=== PATIENT | female | born 1970 | race Caucasian/White ===

== ENCOUNTER 2016-09-20 07:36 | Inpatient (IN) ==
[2016-09-20 08:16] LABS: BASOPHILS % (AUTO) 0.3 % (0.0-3.0); EOSINOPHILS # (AUTO) 0.3 K/ul (0.0-0.7); EOSINOPHILS % (AUTO) 2.6 % (0.0-7.0); HEMATOCRIT 37.2 % (37.0-47.0); HEMOGLOBIN 12.3 g/dl (12.0-16.0); IMMATURE GRANULOCYTE % (AUTO) 0.2 % (0.0-5.0); LYMPHOCYTES # (AUTO) 3.6 K/uL (0.60-3.4); LYMPHOCYTES % (AUTO) 35.9 (10.0-50.0); MEAN CORPUSCULAR HEMOGLOBIN 28.7 pg (27.0-31.0); MEAN CORPUSCULAR HGB CONC 33.1 (31.8-35.4); MEAN CORPUSCULAR VOLUME 86.9 fl (81.0-99.0); MONOCYTES % (AUTO) 10.2 (0-10); NEUTROPHILS # (AUTO) 5.1 K/ul (2.0-6.9); NEUTROPHILS % (AUTO) 50.8; PLATELET COUNT 249 10^3/uL (140-440); RED BLOOD COUNT 4.28 10^6/ul (4.20-5.40); WHITE BLOOD COUNT 9.93 K/ul (4.6-10.2)
--- NOTE | 2016-09-20 08:29 | ED.PDOC ---
General ED Provider: Dr. VIANEY BALLARD Chief Complaint: Shoulder Pain/Injury Stated Complaint: left shoulder pain neck pain, Time Seen by Physician: 07:40 (seen with brooklyn fortunato ) Mode of Arrival: Walk-In Information Source: Patient Exam Limitations: No limitations Primary Care Provider: MADELIN BIANCHI Nursing and Triage Documentation Reviewed and Agree: Yes (NEGATIVE TRAUMA NO INJURY( [place] GIORDANO PRESENT AT ALL TIMES DURING EXAM ) Miscellaneous Complaint Exam - Complex/Multi-System Complaint/Exam Onset/Duration: 1 DAY 46 YUDITH FEMALE WITH SIGNIFICANT HISTORY OF CAD(4MI PLUS5 STENTS) Symptoms Are: Still present Episodes Lasting: Days (ONE DAY PAIN ABOVE DISTRIBUTION NEGATIVE TRAUMA) Initial Severity: Moderate Current Severity: Mild Location of Pain: NECK, LEFT SHOULDER Pain Radiates to: SEE ABOVE Character: CHARACTER Alleviating: NONE Associated Signs and Symptoms: Denies: Decreased responsiveness, Confusion, Agitation, Dizziness, Weakness, Syncope, Headache, Short of air, Cough, Wheezing , Hemoptysis, Chest pain, Palpitations, Edema, Nausea, Vomiting, Diarrhea, Abdominal pain, Back pain, Dysuria, Hematemesis, Melena, Decreased oral intake, Fever, Diaphoresis, Immunocompromised, Anticoagulation Therapy, Recent medication changes, Indwelling medical assistant cardiology, Prior MRSA, Prior VRE, Recent trauma, Remote trauma Recent Echo/LV Function: No Respiratory Distress: None JVD Present: No Tachypnea Present: No Stridor Present: No Abdominal Findings: Present: Normal findings Glascow Coma Scale (see protocol): 15 Meningeal Signs Positive: No Focal Weakness: Present: None Focal Sensory Loss: Present: None Gait: Unable Gag Reflex Present: Yes Differential Diagnosis: Cardiac Ischemia, Metabolic Abnormality Quality Indicators for Cardiac Chest Pain: EKG in 10min. Quality Indicators for AMI: EKG in 10min. Quality Indicator For Non-Traumatic Chest Pain/Syncope: EKG Performed Review of Systems - Review Of Systems Constitutional: Reports: No symptoms Eyes: Reports: No symptoms Ears, Nose, Mouth, Throat: Reports: No symptoms Respiratory: Reports: No symptoms Cardiac: Reports: No symptoms GI: Reports: No symptoms : Reports: No symptoms Musculoskeletal: Reports: Joint pain (SHOULDER, NECK PAIN) Skin: Reports: No symptoms Neurological: Reports: No symptoms Endocrine: Reports: No symptoms Hematologic/Lymphatic: Reports: No symptoms All Other Systems: Reviewed and Negative Past Medical History - Past Medical History Previously Healthy: Yes Endocrine: Reports: None Cardiovascular: Reports: CAD, DE, Hypertension Respiratory: Reports: None Hematological: Reports: None Gastrointestinal: Reports: None Genitourinary: Reports: Kidney stones Neuro/Psych: Reports: Migraine, Anxiety, Depression Musculoskeletal: Reports: None Cancer: Reports: None Last Menstrual Period: months ago-- - Surgical History General Surgical History: Reports: Tubal ligation, Cholecystectomy - Family History Family History: Reports: Unknown - Social History Smoking Status: Current every day smoker, Light tobacco smoker Hx Substance Use: No Alcohol Screening: None Physical Exam - Physical Exam Appearance: Well-appearing, No pain distress, Well-nourished Eyes: REY, EOMI, Conjunctiva clear ENT: Ears normal, Nose normal, Oropharynx normal Respiratory: Airway patent, Breath sounds clear, Breath sounds equal, Respirations nonlabored Cardiovascular: RRR, Pulses normal, No rub, No murmur GI/: Soft, Nontender, No masses, Bowel sounds normal, No Organomegaly Musculoskeletal: Normal strength, ROM intact, No edema, No calf tenderness Skin: Warm, Dry, Normal color Neurological: Sensation intact, Motor intact, Reflexes intact, Cranial nerves intact, Alert, Oriented Psychiatric: Affect appropriate, Mood appropriate Re-Evaluation - Re-Evaluation Time of Re-Evaluation: 08:20 (SEEN WITH MAY PT STATES THE PAIN IS NOT HEART RELATED WOULD LIKE TO LEAVE DUE TO MD DECLINING PAIN MEDS LATER AGREED TO SATY MAY PRESENT AT ALL TIMES ) Status: Unchanged Vital Signs Stable: Yes Appearance: NAD Lungs: Clear Skin: Warm and Dry Neuro: Alert and Oriented X3 CV: RRR - Re-Evaluation Time of Re-Evaluation: 10:04 (recheckec pt with may again at 11:26 am no pain pt is refusing transfer MAY at bedside contacted hospitalist pt admitted) Status: Improved Vital Signs Stable: Yes Appearance: NAD Skin: Warm and Dry Neuro: Alert and Oriented X3 CV: RRR Physician Notification - Case Discussed Physician Notified: hospitalist Time of Notification: 11:26 (admitt) Admit To: Inpatient Critical Care Note - Critical Care Note Total Time (mins): 0 Course - Course Hematology/Chemistry: 09/20/16 08:10 09/20/16 08:10 Orders, Labs, Meds: Lab Review 09/20/16 08:10 WBC 9.93 RBC 4.28 Hgb 12.3 Hct 37.2 MCV 86.9 MCH 28.7 MCHC 33.1 RDW Coeff of Kristopher 13.5 Plt Count 249 Immature Gran % (Auto) 0.2 Neut % (Auto) 50.8 Lymph % (Auto) 35.9 Braxton % (Auto) 10.2 H Eos % (Auto) 2.6 Baso % (Auto) 0.3 Immature Gran # (Auto) 0.0 Neut # 5.1 Lymph # 3.6 H Braxton # 1.0 Eos # 0.3 Baso # 0.0 D-Dimer (Manual) 649.04 Sodium 139 Potassium 4.0 Chloride 106 Carbon Dioxide 24 Anion Gap 13.0 BUN 15 Creatinine 0.72 Estimated GFR (MDRD) 87.00 BUN/Creatinine Ratio 20.83 Glucose 139 H Calcium 8.5 Total Bilirubin 0.11 AST 15 ALT 15 Alkaline Phosphatase 98 Total Creatine Kinase 121 CK-MB (CK-2) 1.6 CK-MB (CK-2) % 1.12414 Troponin I < 0.0100 Total Protein 6.9 Albumin 3.5 Globulin 3.4 Albumin/Globulin Ratio 1.03 Orders Category Date Time Status EKG-(ED ONLY) Stat CARDIO 09/20/16 08:06 Completed EKG-(ED ONLY) Stat CARDIO 09/20/16 09:00 Completed NPO REMINDER: IMAGING ONCE CARE 09/20/16 10:03 Completed ED IV/MEDIPORT/POWERPORT .ONCE EMERGENCY 09/20/16 08:06 Active CBC W/ AUTO DIFF Stat LAB 09/20/16 08:10 Completed COMPREHENSIVE METABOLIC PANEL Stat LAB 09/20/16 08:10 Completed CREATINE KINASE Stat LAB 09/20/16 08:10 Completed D-DIMER Stat LAB 09/20/16 08:10 Completed TROPONIN I Stat LAB 09/20/16 08:10 Completed 0.9 % Sodium Chloride [Saline Flush] MEDS 09/20/16 08:05 Active [address] sy[address] IVF [address] CERVICAL SPINE W/O CONTRAST Stat RADS 09/20/16 08:[address] CHEST PE PROTOCOL Stat RADS 09/20/16 10:03 Completed Medications Generic Name Dose Route Start Last Admin Trade Name Freq PRN Reason Stop Dose Admin Sodium Chloride 1 syr 09/20/16 08:05 09/20/16 08:18 Saline Flush IVF 1 syr PRN PRN Administration To flush IV Vital Signs: Temp Pulse Resp BP Pulse Ox 09/20/16 07:36 98.1 F 86 20 131/86 96 Departure - Departure Time of Disposition: 11:25 Disposition: ADMITTED INPATIENT Discharge Problem: Shoulder pain, Neck pain Instructions: Acute Neck Pain (ED) Condition: Good Pt referred to PMD for follow-up: Yes Allergies/Adverse Reactions: Allergies ketorolac tromethamine [From Toradol] Adverse Reaction (Verified 09/20/16 07:44) Home Medications: Ambulatory Orders Gabapentin [Neurontin] 300 mg PO BID 01/17/13 Ascorbic Acid [Vitamin C] 1,000 mg PO DAILY 01/08/15 Aspirin/Calcium Carbonate/Mag [Aspirin Buffered 325 mg Tab] 325 mg PO DAILY 04/23 Atorvastatin Calcium 20 mg PO DAILY 01/08/15 Carvedilol [Coreg] 6.25 mg PO BIDWM 01/08/15 Cholecalciferol (Vitamin D3) [Vitamin D] 2,000 unit PO DAILY 01/08/15 Clopidogrel Bisulfate [Plavix] 75 mg PO DAILY 01/08/15 Flaxseed Oil [Flax Seed Oil] 1,000 mg PO BID 01/08/15 Furosemide [Lasix Tab] 40 mg PO QDAC 01/08/15 Levothyroxine Sodium [Synthroid] 25 mcg PO QDAC 01/08/15 [place]-3 Fatty Acids/Fish Oil [Fish Oil 1,000 mg Capsule] 1 each PO BID 01/08/15 Duloxetine HCl [Cymbalta] 60 mg PO DAILY 03/21/15 Spironolactone 25 mg PO DAILY 03/21/15 Hydrocodone/Acetaminophen [Hydrocodon-Acetaminophn 10-325] 1 each PO QID PRN
[2016-09-20 08:52] LABS: ALANINE AMINOTRANSFERASE 15 U/L (12-78); ALBUMIN 3.5 g/dL (3.4-5.0); ALBUMIN/GLOBULIN RATIO 1.03; ALKALINE PHOSPHATASE 98 U/L (42-98); ASPARTATE AMINO TRANSFERASE 15 U/L (15-37); BILIRUBIN,TOTAL 0.11 mg/dL (0.00-1.20); BLOOD UREA NITROGEN 15 mg/dL (7-18); BUN/CREATININE RATIO 20.83; CALCIUM 8.5 mg/dL (8.2-10.2); CARBON DIOXIDE 24 mmol/L (21-32); CHLORIDE 106 mmol/L (98-107); CREATINE KINASE 121 U/L; CREATININE 0.72 mg/dL (0.60-1.30); GLUCOSE 139 mg/dL (70-110); SODIUM 139 mmol/L (136-145); TOTAL PROTEIN 6.9 g/dL (6.4-8.2)
[2016-09-20 08:58] LABS: CREATINE KINASE MB 1.6 ng/ml (0.0-3.6)
--- NOTE | 2016-09-20 09:02 | CT ---
EXAM: CT scan of the cervical spine without contrast HISTORY: Pain TECHNIQUE: Imaging of the cervical spine was performed without contrast. Sagittal and coronal jes nstructions and axial images were provided for interpretation. FINDINGS: There is straightening of the cervical spine. The occipital condyles, C1 ring appear int act. The odontoid process and C2 vertebral body appear normal. There is a normal alignment of the f acet joints. The spinous processes are intact. There is moderate loss of disc height and cervical s pondylosis seen at C4-C5 and C5-C6. Segmental analysis: C2-C3: The central canal and neural foramina appear patent. C3-C4: The central canal appears patent. There is uncinate and facet joint degeneration resulting in mild to moderate left and mild right foraminal stenosis. There is mild narrowing of the central canal. C4-C5: There is cervical spondylosis resulting in mild stenosis of the central canal. The thecal s ac measures approximately 8.6 mm AP. There is uncovertebral joint hypertrophy resulting in moderate bilateral foraminal stenosis, left greater than right. C5-C6: There is cervical spondylosis resulting in mild central canal stenosis. The thecal sac abel ures 8 mm AP. There is uncinate and mild facet joint arthropathy resulting in mild to moderate bila teral foraminal stenosis. C6-C7: The central canal appears patent. There is uncinate and facet joint degeneration resulting in mild left foraminal stenosis. The right neural foramen appears adequately patent. C7-T1: The central canal and neural foramina appear patent. IMPRESSION: No acute fractures are seen within the cervical spine. There is mild central canal stenosis seen at the C4-C5 and C5-C6 disc spaces. There is multilevel foraminal stenosis as described above secondary to uncovertebral joint and facet joint degeneration. The findings are most severe at the C4-C5 disc space.
--- NOTE | 2016-09-20 10:45 | CT ---
EXAM: CT angiogram of the chest with contrast HISTORY: Elevated D-dimer TECHNIQUE: Imaging of the chest was performed following the intravenous administration of contrast. 3 mm thin axial images and coronal and sagittal reconstructions and rotated 3-D reconstructions we re provided for interpretation. Comparison none. FINDINGS: No definite filling defects are identified within the branches of the pulmonary arteries. The central pulmonary arteries are normal. The heart is normal size. There is a normal appearance of the thoracic aorta. No mediastinal masses are seen. No lytic or blastic lesions are seen within the osseous structures. IMPRESSION: There is no acute pulmonary embolism.
[2016-09-20] MEDS ORDERED: ASPIRIN CHEWABLE PO STA (11:28)
[2016-09-20] MEDS ORDERED: NORCO 10-325 PO PRN (11:29)
[2016-09-20] MEDS ORDERED: SODIUM CHLORIDE 1,000 ML IV SCH ×2 (12:00→15:52)
[2016-09-20 12:46] VITALS: BMI 38.0
[2016-09-20] MEDS ORDERED: DILAUDID 1 MG/ML SYRINGE IVP STA (16:04)
[2016-09-20] MEDS: COREG PO SCH (17:57)
[2016-09-20 18:23] LABS: CREATINE KINASE 88 U/L
[2016-09-20] MEDS ORDERED: FLEXERIL PO STA (18:50)
[2016-09-20] MEDS: NORCO 10-325 PO SCH ×2 (18:55→21:07)
[2016-09-20] MEDS: ALDACTONE PO SCH (20:48)
[2016-09-20] MEDS: NEURONTIN PO SCH (20:48)
[2016-09-21 01:36] LABS: BASOPHILS % (AUTO) 0.4 % (0.0-3.0); EOSINOPHILS # (AUTO) 0.3 K/ul (0.0-0.7); EOSINOPHILS % (AUTO) 3.2 % (0.0-7.0); HEMATOCRIT 36.6 % (37.0-47.0); HEMOGLOBIN 12.1 g/dl (12.0-16.0); IMMATURE GRANULOCYTE % (AUTO) 0.2 % (0.0-5.0); LYMPHOCYTES # (AUTO) 3.5 K/uL (0.60-3.4); LYMPHOCYTES % (AUTO) 38.1 (10.0-50.0); MEAN CORPUSCULAR HEMOGLOBIN 28.9 pg (27.0-31.0); MEAN CORPUSCULAR HGB CONC 33.1 (31.8-35.4); MEAN CORPUSCULAR VOLUME 87.6 fl (81.0-99.0); MONOCYTES # (AUTO) 0.7 K/uL (0.4-2.0); MONOCYTES % (AUTO) 7.6 (0-10); NEUTROPHILS # (AUTO) 4.6 K/ul (2.0-6.9); NEUTROPHILS % (AUTO) 50.5; PLATELET COUNT 256 10^3/uL (140-440); RED BLOOD COUNT 4.18 10^6/ul (4.20-5.40)
[2016-09-21 01:52] LABS: CHOL/HDL RATIO 6.6 (4.5-5.5)
[2016-09-21 01:54] LABS: ALBUMIN 3.1 g/dL (3.4-5.0); ALBUMIN/GLOBULIN RATIO 0.94; ANION GAP 13.1; BILIRUBIN,TOTAL 0.17 mg/dL (0.00-1.20); BUN/CREATININE RATIO 14.47; CALCIUM 8.2 mg/dL (8.2-10.2); CREATININE 0.76 mg/dL (0.60-1.30); POTASSIUM 4.1 mmol/L (3.5-5.10); TOTAL PROTEIN 6.4 g/dL (6.4-8.2)
[2016-09-21 02:00] LABS: CREATINE KINASE 76 U/L
[2016-09-21] MEDS ORDERED: SYNTHROID PO SCH (06:30)
[2016-09-21] MEDS ORDERED: LASIX TAB PO SCH (06:30)
[2016-09-21] MEDS ORDERED: ASPIRIN EC PO SCH (08:00)
[2016-09-21] MEDS ORDERED: NON-FORMULARY MEDICATION (Duloxetine Hcl [Cymbalta] 60 MG) PO SCH ×22 (09:00)
[2016-09-21] MEDS ORDERED: LIPITOR PO SCH (09:00)
[2016-09-21] MEDS ORDERED: ALDACTONE PO SCH (09:00)
[2016-09-21] MEDS ORDERED: PLAVIX PO SCH (09:00)
[2016-09-21] MEDS ORDERED: CYMBALTA PO SCH (09:00)
[2016-09-21] MEDS: COREG PO SCH (09:16)
[2016-09-21] MEDS: ALDACTONE PO SCH (09:16)
[2016-09-21] MEDS: NORCO 10-325 PO SCH (09:17)
[2016-09-21] MEDS: NEURONTIN PO SCH (09:17)
[2016-09-21 11:48] VITALS: BP 109/81; TEMP 97.8
--- NOTE | 2016-09-23 13:02 | CONS ---
DATE OF CONSULTATION: 09/21/16 - CONSULTATION FOLLOWUP HISTORY OF PRESENT ILLNESS: 46-year-old white female hospitalized with neck pain, posterior side with localized tenderness. The patient's neck pain has practically subsided. There is no chest pain. REVIEW OF SYSTEMS: CONSTITUTIONAL: No night sweats. No fatigue, malaise, lethargy. No fever or chills. HEENT: Eyes: No visual changes. No eye pain. No eye discharge. ENT: No runny nose. No epistaxis. No sinus pain. No sore throat. No odynophagia. No ear pain. No congestion. RESPIRATORY: No cough, no congestion. No hemoptysis. CARDIOVASCULAR: No angina symptoms. No CHF symptoms. No atypical chest pain for CAD. No palpitations. No shortness of breath. GASTROINTESTINAL: No abdominal pain. No nausea or vomiting. No diarrhea or constipation. No hematemesis. No hematochezia. GENITOURINARY: No urgency. No frequency. No dysuria. No hematuria. No obstructive symptoms. No discharge. No pain. No significant abnormal bleeding. MUSCULOSKELETAL: No musculoskeletal pain. No joint swelling. NEUROLOGICAL: No headache. No neck pain. No syncope. No seizures. No dizziness. PSYCHIATRIC: Not anxious. No depression. No suicidal thoughts. No homicidal thoughts. SKIN: No rash. No lesions. No wounds. ENDOCRINE: No unexplained weight loss. No weight gain. HEMATOLOGIC/LYMPHATIC: No anemia. No purpura. No petechiae. No prolonged or excessive bleeding. No palpable lymph nodes. PHYSICAL EXAMINATION: GENERAL: The patient is oriented to time place and person. VITAL SIGNS: Temperature 97, pulse 73, respiratory rate 18, BP 140/88, pulse ox 98%. HEENT: Head normocephalic, atraumatic. Eyes: Extraocular muscles are intact. Pupils are equal, round and reactive to light and accommodation. Ears: No lesions. Nose appeared normal. Throat: No exudate or erythema. NECK: Supple. No JVD, no carotid bruit. No lymphadenopathy or thyromegaly. LUNGS: Decreased breath sounds but clear to auscultation. Percussion note normal. Chest symmetrical. HEART: S1, S2, no S3. No murmurs. No cyanosis or clubbing. No ascites. Pulses: Dorsalis pedis and posterior tibial pulses +1 to +2 both sides. ABDOMEN: Soft. Nontender. Bowel sounds active. No CVA tenderness. No mass felt. EXTREMITIES: No edema. Full range of motion of all extremities, equal. NEUROLOGIC: No focal deficit. Cranial nerves II through XII are grossly intact. No headache, no double vision or headache. SKIN: Not dry. Intact. Turgor - normal. LYMPHATIC: No palpable lymph nodes/no lymphedema. MUSCULOSKELETAL: Normal joints with no swelling. Muscle tone is normal. LABS: Hemoglobin 12,1, hematocrit 36, WBC 9,100, normal differential. Creatinine 0.7 , BUN 11, potassium 4.1, glucose 131, CK-MB negative. T4-TSH negative. ASSESSMENT: 1. NECK PAIN POSTERIORLY WITH RADICULOPATHY TYPE OF PAIN ON MOVEMENT, LOCALIZED PAIN 2. CORONARY ARTERY DISEASE WITH STENTS 3. OBESITY 4. DYSLIPIDEMIA 5. HYPERTENSION 6. FAMILY HISTORY OF HEART DISEASE 7. SMOKING RECOMMENDATION: 1. Strongly advised to quit smoking. 2. Counseling for smoking done. 3. The patient declined echocardiogram and declined any stress tests. The case was discussed on the phone with the attending physician. The patient's pain is definitely noncardiac. The patient's cardiac markers are negative. EKG sinus rhythm with no acute changes. Telemetry sinus rhythm with no ST-T wave change. CONDITION: Stable. The patient is intelligent and understands the consequences of not having cardiac workup done and advised to strongly followup with Dr. Hannah, her store coordinator. CELIO
--- NOTE | 2016-09-24 11:04 | CONS ---
DATE OF CONSULTATION: 09/20/16 REASON FOR CONSULTATION: Coronary artery disease with history of stents with neck pain. HISTORY OF PRESENT ILLNESS: The patient is a 46 year old female came to the emergency room because of having neck pain posteriorly going to the left shoulder with localized tenderness. The patient says that she does not have pain that she usually has with her coronary artery disease. The patient had lab tests done with positive D -dimer so the ER attending along with doctor supervisor pumping station decided to admit the patient for further work up. REVIEW OF SYSTEMS: CONSTITUTIONAL: No night sweats. No fatigue, malaise, lethargy. No fever or chills. HEENT: Eyes: No visual changes. No eye pain. No eye discharge. ENT: No runny nose. No epistaxis. No sinus pain. No sore throat. No odynophagia. No ear pain. No congestion. RESPIRATORY: No cough, no congestion. No hemoptysis. CARDIOVASCULAR: No angina symptoms. No CHF symptoms. No atypical chest pain for CAD. No palpitations. No shortness of breath. GASTROINTESTINAL: No abdominal pain. No nausea or vomiting. No diarrhea or constipation. No hematemesis. No hematochezia. GENITOURINARY: No urgency. No frequency. No dysuria. No hematuria. No obstructive symptoms. No discharge. No pain. No significant abnormal bleeding. MUSCULOSKELETAL: No musculoskeletal pain. No joint swelling. Neck pain in the posterior aspect of the neck, sharp, localized and going to the left shoulder. NEUROLOGICAL: No headache. No neck pain. No syncope. No seizures. No dizziness. PSYCHIATRIC: Not anxious. No depression. No suicidal thoughts. No homicidal thoughts. SKIN: No rash. No lesions. No wounds. ENDOCRINE: No unexplained weight loss. No weight gain. HEMATOLOGIC/LYMPHATIC: No anemia. No purpura. No petechiae. No prolonged or excessive bleeding. No palpable lymph nodes. MEDICATIONS: Gabapentin 300mg twice a day Aspirin one a day Atorvastatin 20mg PO daily Carvedilol 6.25mg twice a day Plavix 75mg PO daily Lasix 40mg PO daily Synthroid 25mcg PO daily Cymbalta 60mg PO daily Aldactone 25mg twice a day Hydrocodone 10-325mg four times a day PRN ALLERGIES: Toradol PAST MEDICAL HISTORY/PAST SURGICAL HISTORY: No significant surgical history History of dyslipidemia Coronary artery disease Strong family history of heart disease Neuropathy Severe Disc disease of the spine SOCIAL/PERSONAL/FAMILY HISTORY: The patient lives with her son. She is Smoker, no alcohol abuse and no drug abuse. 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. She does all activity of daily living, independent and intelligent. PHYSICAL EXAMINATION: GENERAL: The patient is oriented to time, place and person VITAL SIGNS: Temperature 97.1, pulse 88, respiratory rate 20, blood pressure 96343 and pulse ox 96%. HEENT: Head normocephalic, atraumatic. Eyes: Extraocular muscles are intact. Pupils are equal, round and reactive to light and accommodation. Ears: No lesions. Nose appeared normal. Throat: No exudate or erythema. NECK: Supple. No JVD, no carotid bruit. No lymphadenopathy or thyromegaly. Tenderness in the posterior aspect of cervical area on the left side. LUNGS: Clear to auscultation. Percussion note normal. Chest symmetrical. HEART: S1, S2, no S3. No murmurs. No cyanosis or clubbing. No ascites. Pulses: Dorsalis pedis and posterior tibial pulses +1 to +2 both sides. ABDOMEN: Soft. Nontender. Bowel sounds active. No CVA tenderness. No mass felt. EXTREMITIES: No edema. Full range of motion of all extremities, equal. NEUROLOGIC: No focal deficit. Cranial nerves II through XII are grossly intact. No headache, no double vision or headache. SKIN: Not dry. Intact. Turgor - normal. LYMPHATIC: No palpable lymph nodes/no lymphedema. MUSCULOSKELETAL: Normal joints with no swelling. Muscle tone is normal. LABS: hgb 12.3, hct 37, WBC 9,900 normal differential, creatinine 0.7, BUN 15, potassium 4, glucose 139, D-dimer 649, troponin and CK-MB negative. EKG sinus rhythm no acute changes. ASSESSMENT: 1. Neck pain, left shoulder pain atypical for coronary insufficiency likely musculoskeletal with cervical radiculopathy with history of DJD of the spine. 2. Coronary artery disease with history of CT, 2010 with stent placement and after that the patient had four stent placement, last one was a year ago 2015 in [place]. 3. Dyslipidemia 4. Hypertension 5. Obesity with BMI of 38 6. Smoking 7. Strong family history of heart disease 8. 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 Agreed with present management 2. Continuation of all the medications 3. Will do 2DM-Mode echo 4. Agreed with serial EKG's, cardiac markers and telemetry 5. The patient is advised to be up and about 6. The patient is practically asymptomatic for coronary insufficiency or CHF. CONDITION: Stable. MTDD
--- NOTE | 2016-09-24 11:37 | PN ---
CODING FOR BILLING FOR MY OFFICE AND FOR Concepcion Murillo seen on consultation 09/20/16 LEVEL 5 09/21/16 INTERMEDIATE MTDD
--- NOTE | 2016-09-25 09:32 | HP ---
CHIEF COMPLAINT: Pain left side of the neck and tingling of the left fingers. SOURCE OF HISTORY: Patient, reliability good. HISTORY OF PRESENT ILLNESS: This is a 46 year old female who presented to the emergency room at [facility] [place] after work. 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 The patient had been experiencing pain in the left side of the neck and was worsening. 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 Movement causes severe pain with tingling of the fingers. There was no diaphoresis, no nausea and no weakness. The patient denied any chest pain. She was sent to the emergency room and was seen by the ER physician and had the following work-up. CBC unremarkable. D-Dimer 649.04, followed by chest CT angiogram-negative for pulmonary emboli and no acute cardiopulmonary process. CMP slightly elevated sugar at 139. Cardiac enzymes normal and the rest of the chemistries were normal. The patient had CT of the cervical spine showing some narrowing of the foramen more on the left side. The patient claimed that the she has different from the pain that she had at the time of her myocardial infarction, which she had two. The ER MD called me and recommended admission. I did ask him if the patient has a lens molder and he did not answer me that. I felt that if this patient had chest pain or bonafide pain that she should probably see the lens molder, since she had previous cardiac catheterizations times three, that she probably would need another cardiac catheterization instead of a work-up. He told me that the patient does not want to go anyplace, except here. He asked Dr. Anne if he was available for consult when this patient is admitted and Dr. Anne told him yes. The patient was then admitted. PAST PERSONAL HISTORY: The patient is hypertensive, myocardial infarction 2010 and did subsequently have a cardiac catheterization and stents were deployed February 11, 2011 and another catheterization February 16/2011 and two more stents were deployed. She claimed that she had a total of five stents. The third catheterization was done in 2012 where another stent was deployed making it a total of 15. The patient also had another myocardial infarction 2014. She also was diagnosed with hypothyroidism, depression, anxiety, migraine , elevated BMI. The patient had previous and left salpingo- oophorectomy. FAMILY HISTORY: Father had repeated myocardial infarction and some members of the family had leukemia. 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 She smokes about a half a pack of cigarettes a day. The patient was smoking two packs or more prior to her first myocardial infarction. She denies any alcohol use or substance abuse. MEDICATIONS: Prior to this admission consisted of: Neurontin 300 mg twice a day [place] 3 1,000 mg a twice a day Vitamin D3 2,000 IU daily Aspirin 325 mg daily Vitamin C 1,000 mg daily Lasix 40 mg daily Carvedilol 6.25 mg twice a day Lipitor 20 mg daily Levothyroxine 25 mcg daily Plavix 75 mg daily Flaxseed oil 1,000 mg twice a day Cymbalta 60 mg daily Aldactone 25 mg daily Hydrocodone/APAP 10/325 mg one tablet four times a day as needed for the back pain ALLERGIES: Toradol and had a significant amount of rash, but no swelling of the lips or tongue and no shortness of breath. REVIEW OF SYSTEMS: CONSTITUTIONAL: The patient had no fever, no chills and no fatigue. REGULATORY ADMINISTRATOR: The patient had history of migraine headaches, but does not have one now. She has tingling of the fingers of the left hand. No history of syncope or seizure problems. Denies any ataxia. VISUAL: Denies any blurred vision, double vision or loss of vision. AUDITORY: Hearing is good. Denies any tinnitus, pain or drainage. RESPIRATORY: The patient has no significant cough and history of hemoptysis. The patient is a smoker. CARDIOVASCULAR: No anterior chest pain or any oppression type sensation. No shortness of breath with the usual exertion at work. GASTROINTESTINAL: No nausea, anorexia or vomiting or abdominal pain. GENITOURINARY: Denies any dysuria or frequency. MUSCULOSKELETAL: The patient has pain in the neck, left side, as well as the left suprascapular area and tingling of the fingers of the left hand. She also has lumbar pain and is taking medication from her family physician. INTEGUMENT: Denies any rash or pruritus. Skin is dry. ENDOCRINE: No polyuria or polydipsia. The patient, however, has a markedly elevated BMI 38.1. HEMATOLOGIC: No history of prolonged bleeding or easy bruising. This patient is on Plavix because of the coronary artery disease and stents. PSYCHIATRIC: Affect is normal. The patient is pleasant and answers question. PHYSICAL EXAMINATION: GENERAL: We have a 46 year old female admitted to the hospital because of pain to the left side of the neck with tingling of the fingers on the left hand. The patient had significant coronary artery disease and she had a previous SC in 2010 with two cardiac catheterization in one week. She had another cardiac catheterization in 2012. Chief complaint according to the ER doctor was shoulder pain, left and neck pain. Triage nurse put shoulder pain/ injury as the chief complaint. Pain was radiating to the shoulder, arm and back of the head according to the triage nurse. The patient, however, told me that it did not radiate down to the fingers, but had tingling sensation with pain mostly confined to the left side of the neck. The pain was not accompanied by nausea, anorexia, diaphoresis or weakness. VITAL SIGNS: In the emergency room showed a temperature of 98.1, pulse 86, respiratory rate 20, oxygen saturation 96 at room air. Blood pressure 131/86. Pain level is 10 on a scale of 1-10. The patient has [place] for the lumbar pain. She is 5'3" and 250 pounds on the scale at the emergency room. BMI of 44.2. There is a large discrepancy with the weight measurements to the floor on admission. HEAD: Unremarkable. FACE: Symmetrical and equal with no facial weakness. No significant tenderness in the frontal or maxillary areas to palpation under pressure. EYES: Pupils equal/reactive to light about 3 1/2 mm in size. Conjunctivae not pale. Sclerae not icteric. MOUTH: Unremarkable. THROAT: No inflammation, tumors or exudate. NECK: Markedly tender on the left side including the left occiput. There is also tenderness on the left perithoracic about T1 and C7 level. There is tenderness close to the thoracic area in the left suprascapular. No remarkable tenderness in the shoulders or arm. No tenderness in the right side. No bruit on either side of the neck. CHEST: Symmetrical and equal with good expansion. LUNGS: Breath sounds are heard in both sides. No rales or wheezing. HEART: Audible and regular with good tones. No murmurs. BREASTS: Not examined. ABDOMEN: Protuberant, soft with no remarkable tenderness. No guarding. Bowel sounds are active. There are no masses palpable and no bruit. LOWER EXTREMITIES: No tenderness in the calf muscles and the pedal pulses are present. UPPER EXTREMITIES: Symmetrical and equal. ASSESSMENT: 1. CERVICAL DISC DISEASE WITH RADICULITIS LEFT SIDE 2. HISTORY OF CORONARY ARTERY DISEASE, STATUS POST MYOCARDIAL INFARCTION 2010 AND 2014 3. THREE CARDIAC CATHETERIZATIONS WITH 5 STENTS DEPLOYED, TOTAL. TWO ON THE 1ST CARDIAC CATH AND ANOTHER TWO ON THE SECOND AND THEN ANOTHER ONE ON 2012. 4. HYPERTENSION 5. HISTORY OF HYPOTHYROIDISM TAKING ONLY 25 MCG OF LEVOTHYROXINE 6. HISTORY OF DEPRESSION 7. HISTORY OF ANXIETY 8. HISTORY OF MIGRAINE 9. MORBID OBESITY, BMI 44.2 10. CHRONIC TOBACCO USE AND ABUSE, PERSISTENT 11. HISTORY OF AND LEFT SALPINGO-OOPHORECTOMY 12. ELEVATED D-DIMER WITH NEGATIVE PE BY CTA PLAN: The patient is advised to stop smoking and consider weight reduction. This patient told me that she is trying to reduce and it is only once a day. She also is exercising, but has problems losing weight because of her thyroid. I told her that if her thyroid problems is completely replaced that it would not have any bearing to her not loosing weight. I probably believe that this patient has an insulin resistant syndrome and we would get a fasting Insulin tomorrow. We will also get a TSH and see how much replacement or does she need one. I informed the patient that if the lens molder would clear her to go home that she will be discharged tomorrow. The patient had never been given any pain medication in the emergency room according to her. CELIO
--- NOTE | 2016-09-30 12:42 | DS ---
PATIENT IDENTIFICATION: 46 year old female who presented to [facility] in the early childhood coordinator of 09/20/2016 after work. 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 The pain was described as the left side of the neck with tingling of the fingers, but no particular radiation to the elbow or forearm. The patient also had denied any nausea, weakness or diaphoresis and claimed that the pain was different from the pain she had with her previous myocardial infarction. She had two of those. The emergency room physician, however, advised that she be admitted and had asked Dr. Anne, who was at the emergency room if he would be available for consultation. Dr. Anne said that he would and he did see the patient while she was in the emergency room. The patient's EKG was normal and her intial cardiac enzymes studies were also normal. The CTA was negative for a pulmonary emboli with a slightly elevated D-Dimer 649.04. The patient's CMP was unremarkable, except for a blood sugar 139 on presentation. HOSPITAL COURSE: The patient was placed on telemetry and Dr. Anne was asked for consultation. The patient does smoke 10 cigarettes a day and she used to smoke two packs of cigarettes a day prior to her myocardial infarction. LUNGS: Clear to auscultation. HEART: Normal sinus rhythm. NECK: The neck has no bruit. LOWER EXTREMITIES: Pedal pulses were present and no tenderness in the calf muscles. A repeat cardiac enzymes remained normal. A repeat EKG again remained unchanged and normal. The patient refused the echocardiogram that was ordered by Dr. Anne, as well as a stress sestamibi for tomorrow. The patient wanted to go home and she told the nurse that she had to be out from this hospital by noon today. I did see the patient on rounds about noon and the patient is alert and oriented, ambulatory and without any dyspnea or tachypnea. The pain in the neck has regressed remarkably after a muscle relaxant was given, Flexeril 5 mg. She claimed that her neck popped and since then the pain is much less. There is no tingling of the fingers and the patient had not had any chest pain or chest tightness. PHYSICAL EXAMINATION: At discharge, revealed a patient who is alert, ambulatory and moves without any hesitation. NECK: The neck is much less tender than before, including the left occiput. VITAL SIGNS: At 10:00 a.m. on 09/21/16, showed a temperature of 97.8, pulse 74 , blood pressure 109/81, respiratory rate 11 and oxygen saturation 96. LUNGS: Clear to auscultation in both sides. HEART: Normal sinus rhythm. LOWER EXTREMITIES: She denies any pain in the posterior legs. PLAN: She is then discharged and advised to see her primary care physician for follow up. She should go to the emergency room that is close by if she would have any chest pain or recurrence of the problem with more symptoms. She was further advised to consider stopping smoking. The results of the chemistries were shown to her and particular the elevated blood sugar. We still do not have the results of the fasting insulin. No hemoglobin A1C at this time. Lipid panel was ordered by Dr. Anne and the patient has a markedly low HDL. Her total cholesterol and VLDL are not on target for someone who had a previous recorded and confirmed coronary artery disease. This patient has previous lumbar pain. The CT scan of the cervical spine showed no acute fracture seen within the cervical spine. There is mild spinal stenosis at C4-C5, C5-C6, facet joint degeneration resulting to mild to moderate foraminal stenosis more left than right. The findings are more significant at C4-C5 level. The patient 's tingling is on the left hand. The patient was advised that the cervical disc problem probably would need an MRI for further delineation. FINAL DIAGNOSES: 1. CERVICAL DISC DISEASE WITH LEFT RADICULITIS, IMPROVED 2. CORONARY ARTERY DISEASE, STATUS POST OK TIMES TWO AND POST CARDIAC CATHETERIZATION TIMES THREE WITH A TOTAL OF FIVE STENTS APPLIED OR DEPLOYED. 3. CHRONIC TOBACCO USE AND ABUSE, PERSISTENT 4. MARKEDLY ELEVATED BMI 5. LIPID PANEL NOT ON TARGET 6. HISTORY OF HYPERTENSION 7. HISTORY OF HYPOTHYROIDISM ON 25 MCG OF LEVOTHYROXINE 8. HISTORY OF DEPRESSION 9. HISTORY OF HEADACHES, MIGRAINE 10. HISTORY OF ANXIETY 11. HISTORY OF AND LEFT SALPINGO-OOPHORECTOMY 12. SECOND [facility]
== END 2016-09-21 12:10 | disposition home or self-care (01) | DRG 552 ==
LOC: ED 07:36 → MEDSURG B 11:34
PROVIDERS: ADMIT General Practice; ATTEND General Practice
DX: M50.121 Cervical disc disorder at C4-C5 level with radiculopathy (principal); M48.02 Spinal stenosis, cervical region; R20.2 Paresthesia of skin; R79.1 Abnormal coagulation profile; M25.512 Pain in left shoulder; I25.2 Old myocardial infarction; I25.10 Atherosclerotic heart disease of native coronary artery without angina pectoris; E03.9 Hypothyroidism, unspecified; I10 Essential (primary) hypertension; M47.896 Other spondylosis, lumbar region; E66.9 Obesity, unspecified; F41.8 Other specified anxiety disorders; F17.210 Nicotine dependence, cigarettes, uncomplicated; Z53.20 Procedure and treatment not carried out because of patient's decision for unspecified reasons; Z95.5 Presence of coronary angioplasty implant and graft; Z79.02 Long term (current) use of antithrombotics/antiplatelets; Z79.899 Other long term (current) drug therapy; Z82.49 Family history of ischemic heart disease and other diseases of the circulatory system
CPT/HCPCS: 36415; 80053; 80061; 82550; 82553; 83525; 84439; 84443; 84484; 85025; 85379; 93005; 93010; 99284

== ENCOUNTER 2017-06-13 16:01 | Emergency (ER) ==
[2017-06-13 16:05] VITALS: BP 113/88; TEMP 98.7; BMI 43.9
[2017-06-13] MEDS ORDERED: DUONEB NEB STA (17:05)
[2017-06-13] MEDS ORDERED: MUCINEX PO STA (19:04)
[2017-06-13] MEDS ORDERED: XOPENEX 1.25 MG NEB STA (19:06)
[2017-06-13] MEDS ORDERED: PULMICORT 0.5 MG/2 ML NEB STA (19:07)
--- NOTE | 2017-06-13 19:42 | ED.PDOC ---
General ED Provider: Dr. DAPHNEY CHANCE Chief Complaint: Shortness of Air Stated Complaint: Has been sick for past month. States haviing SOB, chest congestion and feeling very tired. Works at [employer]. Denies fever or chills. Cough non productive. Time Seen by Physician: 16:45 Mode of Arrival: Walk-In Information Source: Patient Exam Limitations: No limitations Primary Care Provider: MADELIN BIANCHI Referred to ED by: Other (self) Nursing and Triage Documentation Reviewed and Agree: Yes Reviewed sepsis parameters & appropriate labs ordered?: Yes System Inflammatory Response Syndrome: Not Applicable Sepsis Protocol: For patient's 13 years and over: Temp is 96.8 and below OR 101 and greater Pulse >90 BPM Resp >20/minute Acutely Altered Mental Status Are patient's symptoms suggestive of a new infection, such as: -Pneumonia -Skin, Soft Tissue -Endocarditis -UTI -Bone, Joint Infection -Implantable Device -Acute Abdominal Infection -Wound Infection -Meningitis -Blood Stream Catheter Infection -Unknown System Inflammatory Response Syndrome: Not Applicable Respiratory Complaint Exam - Shortness of Air Complaint/Exam Symptoms Are: Still present Timing: Intermittent Initial Severity: Moderate Current Severity: Moderate Character: Reports: Dyspnea at rest, Dyspnea on exertion Aggravating: Reports: Movement, Deep breaths, Recumbent position, URI Alleviating: Reports: Bronchodilators Associated Signs and Symptoms: Reports: Cough, Wheezing, Nasal congestion Related History: Reports: Similar episode History of Healthcare-Acquired Pneumonia: Lives at half[place]way (works at half-way) Pulmonary Embolism Risk Factors: Reports: None Cardiac Risk Factors: Reports: None Pseudomonas Risk Factors: Reports: None Tuberculosis Risk Factors: Reports: None Home Oxygen Use: No Recent Stress Test: No Respiratory Distress: Mild Stridor Present: No Tracheal Deviation: No Subcutaneous Emphysema: No Accessory Muscle Use: No Retractions: Not Present Diminished Breath Sounds: Yes Unable to Speak Full Sentences: No Fatigue: Yes Leg Swelling: No Jonny's Sign Present: No Grunting Respirations: No Kussmaul Respirations: No Differential Diagnoses: COPD Exacerbation, Bronchitis, Bronchospasm, Mycoplasma , URI Review of Systems - Review Of Systems Constitutional: Reports: No symptoms Eyes: Reports: No symptoms Ears, Nose, Mouth, Throat: Reports: No symptoms Respiratory: Reports: No symptoms, Cough, Short of air, Wheezing Cardiac: Reports: No symptoms GI: Reports: No symptoms : Reports: No symptoms Musculoskeletal: Reports: No symptoms Skin: Reports: No symptoms Neurological: Reports: No symptoms Endocrine: Reports: No symptoms Hematologic/Lymphatic: Reports: No symptoms All Other Systems: Reviewed and Negative Past Medical History - Past Medical History Previously Healthy: Yes Endocrine: Reports: None Cardiovascular: Reports: CAD, ND, Hypertension Respiratory: Reports: None, Bronchitis Hematological: Reports: None Gastrointestinal: Reports: None Genitourinary: Reports: Kidney stones Neuro/Psych: Reports: Migraine, Anxiety, Depression Musculoskeletal: Reports: None Cancer: Reports: None Last Menstrual Period: IRREGULAR - Surgical History General Surgical History: Reports: Tubal ligation, Cholecystectomy - Family History Family History: Reports: Unknown - Social History Smoking Status: Current every day smoker, Light tobacco smoker Hx Substance Use: No Alcohol Screening: None - Immunizations Tetanus Shot up to Date: Yes Physical Exam - Physical Exam Appearance: Ill-appearing, No pain distress, Well-nourished, Obese Ill-appearing: Mild Pain Distress: None Eyes: REY, EOMI, Conjunctiva clear ENT: Ears normal, Nose normal, Oropharynx normal Respiratory: Airway patent, Breath sounds equal, Breath sounds diminished, Respirations nonlabored, Wheezes Cardiovascular: RRR, Pulses normal, No rub, No murmur GI/: Soft, Nontender, No masses, Bowel sounds normal, No Organomegaly Musculoskeletal: Normal strength, ROM intact, No edema, No calf tenderness Skin: Warm, Dry, Normal color Neurological: Sensation intact, Motor intact, Reflexes intact, Cranial nerves intact, Alert, Oriented Psychiatric: Affect appropriate, Mood appropriate Interpretation - Radiology Interpretation Radiology Interpretation By: ED Physician Radiology Results: Negative Exam Interpreted: CXR Re-Evaluation - Re-Evaluation Time of Re-Evaluation: 19:30 Status: Improved Vital Signs Stable: Yes Appearance: NAD Lungs: Other (less wheezing) Skin: Warm and Dry Neuro: Alert and Oriented X3 CV: RRR Critical Care Note - Critical Care Note Total Time (mins): 0 Course - Course Hematology/Chemistry: 06/13/17 17:10 06/13/17 17:10 Orders, Labs, Meds: Lab Review 06/13/17 06/13/17 06/13/17 17:10 17:10 19:04 WBC 11.81 H RBC 5.06 Hgb 14.3 Hct 42.2 MCV 83.4 MCH 28.3 MCHC 33.9 RDW Coeff of Kristopher 14.4 Plt Count 306 Neutrophils % (Manual) 68.0 Lymphocytes % (Manual) 21.0 Monocytes % (Manual) 4.0 Reactive Lymphocytes 7.0 H Anisocytosis Not present Sodium 140 Potassium 3.3 L Chloride 104 Carbon Dioxide 24 Anion Gap 15.3 BUN 13 Creatinine 0.72 Estimated GFR (MDRD) 87.00 BUN/Creatinine Ratio 18.05 Glucose 120 H Calcium 9.2 Total Bilirubin 0.4 AST 17 ALT 19 Alkaline Phosphatase 81 Total Protein 7.1 Albumin 3.4 Globulin 3.7 Albumin/Globulin Ratio 0.92 Influ A Molecular Assay Negative by naat Influ B Molecular Assay Negative by naat Orders Category Date Time Status EKG-(ED ONLY) Stat CARDIO 06/13/17 17:34 Completed NEBULIZER TREATMENT Stat CARDIO 06/13/17 17:05 Completed NEBULIZER TREATMENT Stat CARDIO 06/13/17 19:07 Ordered CBC W/ AUTO DIFF Stat LAB 06/13/17 17:10 Completed CMP [COMPREHENSIVE METABOLIC PANEL] Stat LAB 06/13/17 17:10 Completed FLU A & B MOLECULAR [FLU A/B MOLECULAR] Stat LAB 06/13/17 19:04 Completed MANUAL DIFFERENTIAL Stat LAB 06/13/17 17:10 Completed RAPID STREP SCREEN [MOLECULAR GROUP A STREP] Stat LAB 06/13/17 19:04 Completed Azithromycin [Zithromax] MEDS 06/13/17 19:53 Stat 500 mg PO ONCE STA Budesonide [Pulmicort 0.5 mg/2 ml] MEDS 06/13/17 19:07 Discontinued 1 vial NEB ONCE STA Guaifenesin [Mucinex] MEDS 06/13/17 19:04 Discontinued 600 mg PO ONCE STA Ipratropium/Albuterol Neb [Duoneb] MEDS 06/13/17 17:05 Discontinued 1 vial NEB ONCE STA Levalbuterol HCl [Xopenex 1.25 mg] MEDS 06/13/17 19:06 Discontinued 1 vial NEB ONCE STA Methylprednisolone Sod Succ/Pf [Solu-Medrol 125 mg] MEDS 06/13/17 19:52 Stat 125 mg IM ONCE STA CHEST, 2 VIEWS PA & LAT Stat RADS 06/13/17 17:00 Taken Medications Discontinued Medications Generic Name Dose Route Start Last Admin Trade Name Freq PRN Reason Stop Dose Admin Albuterol/Ipratropium 1 vial 06/13/17 17:05 06/13/17 17:13 Duoneb NEB 06/13/17 17:06 1 vial ONCE STA Administration Azithromycin 500 mg 06/13/17 19:53 Zithromax PO 06/13/17 19:54 ONCE STA Budesonide 1 vial 06/13/17 19:07 06/13/17 19:23 Pulmicort 0.5 Mg/2 Ml NEB 06/13/17 19:08 1 vial ONCE STA Administration Guaifenesin 600 mg 06/13/17 19:04 06/13/17 19:10 Mucinex PO 06/13/17 19:05 600 mg ONCE STA Administration Levalbuterol HCl 1 vial 06/13/17 19:06 06/13/17 19:23 Xopenex 1.25 Mg NEB 06/13/17 19:07 1 vial ONCE STA Administration Methylprednisolone Sodium Succinate 125 mg 06/13/17 19:52 Solu-Medrol 125 Mg IM 06/13/17 19:53 ONCE STA Vital Signs: Temp Pulse Resp BP Pulse Ox 06/13/17 16:02 98.7 F 108 H 22 113/88 97 Departure - Departure Time of Disposition: 19:55 Disposition: HOME SELF-CARE Discharge Problem: Bronchitis, URI (upper respiratory infection) Instructions: Upper Respiratory Infection (ED), Acute Bronchitis (ED) Condition: Good Pt referred to PMD for follow-up: Yes (1 week with PCP) IPMP verified?: No Additional Instructions: Take meds as prescribed Use Neb routinely 4 times daily for relief of congestion and chest wheezing when home Use Pro air as needed for breakthrough symptoms when not at home Refrain from working through next thursday Prescriptions: Albuterol Sulfate [Proair Hfa] 2 puff IH Q6H PRN 28 Days #1 inhaler PRN Reason: shortness of breath Azithromycin [Zithromax] 250 mg PO DAILY #4 tablet Guaifenesin [Mucinex] 600 mg PO BID #20 tab.er.12h Allergies/Adverse Reactions: Allergies ketorolac tromethamine [From Toradol] Adverse Reaction (Verified 06/13/17 16:06) ondansetron [From Zofran (as hydrochloride)] Adverse Reaction (Verified 16:06) Home Medications: Ambulatory Orders Ascorbic Acid [Vitamin C] 1,000 mg PO DAILY 01/08/15 Aspirin/Calcium Carbonate/Mag [Aspirin Buffered 325 mg Tab] 325 mg PO DAILY 04/23 Atorvastatin Calcium 20 mg PO DAILY 01/08/15 Carvedilol [Coreg] 6.25 mg PO BIDWM 01/08/15 Flaxseed Oil [Flax Seed Oil] 1,000 mg PO BID 01/08/15 Furosemide [Lasix Tab] 40 mg PO QDAC 01/08/15 Levothyroxine Sodium [Synthroid] 25 mcg PO QDAC 01/08/15 [place]-3 Fatty Acids/Fish Oil [Fish Oil 1,000 mg Capsule] 1 each PO BID 01/08/15 Duloxetine HCl [Cymbalta] 60 mg PO DAILY 03/21/15 Hydrocodone/Acetaminophen [Hydrocodone-Acetamin 10-325 mg] 1 each PO QID PRN Spironolactone 25 mg PO BID 09/20/16 Ticagrelor [Brilinta] 60 mg PO DAILY 01/06/17 Albuterol Sulfate 0.083% Neb [Albuterol 0.083% Neb] 1 vial NEB RTQ6H PRN #60 vial.neb 06/13/17 Albuterol Sulfate [Proair Hfa] 2 puff IH Q6H PRN 28 Days #1 inhaler 06/13/17 Azithromycin [Zithromax] 250 mg PO DAILY #4 tablet 06/13/17 Guaifenesin [Mucinex] 600 mg PO BID #20 tab.er.12h 06/13/17 Disposition Discussed With: Patient, Family
[2017-06-13] MEDS ORDERED: SOLU-MEDROL 125 MG IM STA (19:52)
[2017-06-13] MEDS ORDERED: ZITHROMAX PO STA (19:53)
--- NOTE | 2017-06-14 07:45 | DI ---
EXAM: PA and lateral views of the chest HISTORY: Dyspnea COMPARISON: 08/12/2013 FINDINGS: No focal consolidation, pleural effusion or pneumothorax is seen. A right mid lung calcified granulo ma is identified. The cardiomediastinal silhouette is within normal limits. There are mild to mild degenerative changes of the thoracic spine. IMPRESSION: No acute cardiopulmonary findings. Evidence of prior granulomatous infection.
== END 2017-06-13 20:21 | disposition home or self-care (01) ==
LOC: ED 16:01
DX: J20.9 Acute bronchitis, unspecified (principal); J06.9 Acute upper respiratory infection, unspecified; I25.10 Atherosclerotic heart disease of native coronary artery without angina pectoris; I25.2 Old myocardial infarction; I10 Essential (primary) hypertension; R06.02 Shortness of breath; F17.210 Nicotine dependence, cigarettes, uncomplicated; Z79.899 Other long term (current) drug therapy
CPT/HCPCS: 36415; 80053; 85007; 85025; 87502; 87651; 93005; 93010; 94640; 96372; 99283

== ENCOUNTER 2017-09-16 21:46 | Emergency (ER) ==
[2017-09-16 21:59] VITALS: BMI 44.8
[2017-09-16] MEDS ORDERED: SILVADENE CREAM TP STA (22:22)
[2017-09-16] MEDS ORDERED: SOLU-MEDROL 125 MG IM STA (22:22)
--- NOTE | 2017-09-16 22:28 | ED.PDOC ---
General ED Provider: Dr. PRANAV COLLINS Chief Complaint: Foot Pain/Injury Stated Complaint: Patient states that [place] accidentaly [place]. She had the exposure for one hour. starting yesterday she has been having severe pain and redness to the right distal foot. pain is worse with touching and weight bearing. Has tried taking [place] 10 for it but the pain is not better. Time Seen by Physician: 22:15 Mode of Arrival: Walk-In Information Source: Patient Exam Limitations: No limitations Primary Care Provider: MADELIN BIANCHI Nursing and Triage Documentation Reviewed and Agree: Yes Does patient meet sepsis criteria?: No System Inflammatory Response Syndrome: Not Applicable Sepsis Protocol: For patient's 13 years and over: Temp is 96.8 and below OR 101 and greater Pulse >90 BPM Resp >20/minute Acutely Altered Mental Status Are patient's symptoms suggestive of a new infection, such as: -Pneumonia -Skin, Soft Tissue -Endocarditis -UTI -Bone, Joint Infection -Implantable Device -Acute Abdominal Infection -Wound Infection -Meningitis -Blood Stream Catheter Infection -Unknown Review of Systems - Review Of Systems Constitutional: Reports: No symptoms Eyes: Reports: No symptoms Ears, Nose, Mouth, Throat: Reports: No symptoms Respiratory: Reports: No symptoms Cardiac: Reports: No symptoms GI: Reports: No symptoms : Reports: No symptoms Musculoskeletal: Reports: Joint pain, Muscle pain (right foot ) Skin: Reports: Rash (redness on the right distal foot ) Neurological: Reports: No symptoms Endocrine: Reports: No symptoms Hematologic/Lymphatic: Reports: No symptoms All Other Systems: Reviewed and Negative Past Medical History - Past Medical History Previously Healthy: Yes Endocrine: Reports: None Cardiovascular: Reports: CAD, [place], Hypertension Respiratory: Reports: None, Bronchitis Hematological: Reports: None Gastrointestinal: Reports: None Genitourinary: Reports: Kidney stones Neuro/Psych: Reports: Migraine, Anxiety, Depression Musculoskeletal: Reports: None Cancer: Reports: None Last Menstrual Period: 4 WEEKS AGO - Surgical History General Surgical History: Reports: Tubal ligation, Cholecystectomy - Family History Family History: Reports: Unknown - Social History Smoking Status: Current every day smoker, Light tobacco smoker Hx Substance Use: No Alcohol Screening: None - Immunizations Tetanus Shot up to Date: Yes Physical Exam - Physical Exam Appearance: Obese Pain Distress: Moderate Critical Care Note - Critical Care Note Total Time (mins): 0 Course - Course Orders, Labs, Meds: Orders Category Date Time Status Methylprednisolone Sod Succ/Pf [Solu-Medrol 125 mg] MEDS 09/16/17 22:22 Discontinued 125 mg IM ONCE STA Silver Sulfadiazine [Silvadene Cream] MEDS 09/16/17 22:22 Discontinued 1 applic TP ONCE STA Medications Discontinued Medications Generic Name Dose Route Start Last Admin Trade Name Jess PRN Reason Stop Dose Admin Methylprednisolone Sodium Succinate 125 mg 09/16/17 22:22 09/16/17 22:26 Solu-Medrol 125 Mg IM 09/16/17 22:23 125 mg ONCE STA Administration Silver Sulfadiazine 1 applic 09/16/17 22:22 09/16/17 22:35 Silvadene Cream TP 09/16/17 22:23 1 applic ONCE STA Administration Vital Signs: Temp Pulse Resp BP Pulse Ox 09/16/17 21:47 99.1 F 106 H 20 131/96 H 95 Departure - Departure Time of Disposition: 22:45 Disposition: HOME SELF-CARE Discharge Problem: Chemical dermatitis Instructions: Contact Dermatitis (ED) Condition: Stable Pt referred to PMD for follow-up: Yes IPMP verified?: No Additional Instructions: Take Medications as prescribed Take over the counter Benadryl as needed for swelling and rash. Use Silvadene to foot twice a day for 7 days Follow up with PCP in 3 days Prescriptions: Prednisone 20 mg PO DAILYWM #5 tablet Allergies/Adverse Reactions: Allergies ketorolac tromethamine [From Toradol] Adverse Reaction (Verified 09/16/17 22:00) Rash Home Medications: Ambulatory Orders Ascorbic Acid [Vitamin C] 1,000 mg PO DAILY 01/08/15 Aspirin/Calcium Carbonate/Mag [Aspirin Buffered 325 mg Tab] 325 mg PO DAILY 04/23 Atorvastatin Calcium 20 mg PO DAILY 01/08/15 Carvedilol [Coreg] 6.25 mg PO BIDWM 01/08/15 Flaxseed Oil [Flax Seed Oil] 1,000 mg PO BID 01/08/15 Furosemide [Lasix Tab] 40 mg PO QDAC 01/08/15 Levothyroxine Sodium [Synthroid] 25 mcg PO QDAC 01/08/15 [place]-3 Fatty Acids/Fish Oil [Fish Oil 1,000 mg Capsule] 1 each PO BID 01/08/15 Duloxetine HCl [Cymbalta] 60 mg PO DAILY 03/21/15 Hydrocodone/Acetaminophen [Hydrocodone-Acetamin 10-325 mg] 1 each PO QID PRN Spironolactone 25 mg PO BID 09/20/16 Ticagrelor [Brilinta] 60 mg PO DAILY 01/06/17 Albuterol Sulfate 0.083% Neb [Albuterol 0.083% Neb] 1 vial NEB RTQ6H PRN #60 vial.neb 06/13/17 Albuterol Sulfate [Proair Hfa] 2 puff IH Q6H PRN 28 Days #1 inhaler 06/13/17 Azithromycin [Zithromax] 250 mg PO DAILY #4 tablet 06/13/17 Guaifenesin [Mucinex] 600 mg PO BID PRN 09/16/17 Prednisone 20 mg PO DAILYWM #5 tablet 09/16/17 Disposition Discussed With: Patient
[2017-09-16 22:43] VITALS: BP 117/82; TEMP 97.8
== END 2017-09-16 22:45 | disposition home or self-care (01) ==
LOC: ED 21:46
DX: L24.89 Irritant contact dermatitis due to other agents (principal); F17.210 Nicotine dependence, cigarettes, uncomplicated
CPT/HCPCS: 96372; 99283

== ENCOUNTER 2017-10-17 09:55 | Observation (INO) ==
[2017-10-17 10:02] VITALS: BMI 44.1
[2017-10-17] MEDS ORDERED: SODIUM CHLORIDE 1,000 ML IV STA (10:12)
[2017-10-17] MEDS ORDERED: ZOFRAN 4 MG/2 ML IVP STA (10:12)
[2017-10-17] MEDS ORDERED: GI COCKTAIL PO STA (10:16)
[2017-10-17] MEDS ORDERED: PEPCID IVP STA (10:16)
--- NOTE | 2017-10-17 10:28 | ED.PDOC ---
General ED Provider: Dr. DAPHNEY CHANCE Chief Complaint: Abdominal Pain Stated Complaint: cc: UPPER ABDOMINAL PAIN. onset: APPROXIMATELY 6 AM. OFF WORK FROM [employer] AFTER MIDNIGHT. AWAKENED WITH DISCOMFORT. HAS EXPERIENCED BEFORE. ETIOLOGY UNKNOWN. DENIES CHANCE OF . NAUSEATED WITH 4 EPISODES EMESIS. NO LOWER GI SYMPOTMS. DENIES FLANK PAIN /DENIES SYMPTOMS OR HX RENAL STONE. Time Seen by Physician: 10:03 Mode of Arrival: Walk-In Information Source: Patient Primary Care Provider: MADELIN BIANCHI Nursing and Triage Documentation Reviewed and Agree: Yes Does patient meet sepsis criteria?: No System Inflammatory Response Syndrome: Not Applicable Sepsis Protocol: For patient's 13 years and over: Temp is 96.8 and below OR 101 and greater Pulse >90 BPM Resp >20/minute Acutely Altered Mental Status Are patient's symptoms suggestive of a new infection, such as: -Pneumonia -Skin, Soft Tissue -Endocarditis -UTI -Bone, Joint Infection -Implantable Device -Acute Abdominal Infection -Wound Infection -Meningitis -Blood Stream Catheter Infection -Unknown GI Complaint Exam - Abdominal Pain Complaint/Exam Onset: Sudden Duration: 4 HRS Symptoms Are: Still present Timing: Intermittent (WAVES OF UPPER ABDOMINAL CRAMPING) Initial Severity: Severe Current Severity: Severe Location of Pain: RUQ, LUQ, Epigastric Radiates To: Reports: Back Character: Reports: Sharp, Dull, Aching, Burning, Cramping Alleviating: Reports: None Associated Signs and Symptoms: Reports: Back pain, Nausea, Vomiting Related History: Reports: Similar episode AAA Risk Factors: Reports: None Cardiac Risk Factors: Reports: None Ectopic Risk Factors: Reports: None Ovarian Torsion Risk Factors: Reports: None Surgical Obstruction Risk Factors: Reports: None Related Surgical History: Reports: None Abdominal Findings: Present: Other (ABDOMINAL PAIN TO PALPATION /) Differential Diagnoses: Bowel Obstruction, Gastroenteritis, Pancreatitis, GB, UTI Quality Indicators for AMI: EKG in 10min. Quality Indicator For Non-Traumatic Chest Pain/Syncope: EKG Performed - Vomiting/Diarrhea Complaint/Exam Onset/Duration: 4 HRS Symptoms Are: Still present (4) Initial Severity: Severe Current Severity: Severe Character of Vomiting: Reports: Bilious Aggravating: Reports: None Alleviating: Reports: None Associated Signs and Symptoms: Reports: Abdominal pain, Cramping Related History: Reports: Similar episode Surgical Obstruction Risk Factors: Reports: Colicky abdominal pain Abdominal Findings: Present: CVA Tenderness. Absent: Abdominal distention, Rebound tenderness, Peritoneal signs, [place]'s [place] tender, Hernia, Inguinal swelling Differential Diagnoses: Cholecystitis, Gastritis, Viral Gastroenteritis, Pancreatitis, UTI Review of Systems - Review Of Systems Constitutional: Reports: No symptoms, Weakness Eyes: Reports: No symptoms Ears, Nose, Mouth, Throat: Reports: No symptoms Respiratory: Reports: No symptoms Cardiac: Reports: No symptoms GI: Reports: Abdominal pain, Nausea, Poor fluid intake, Vomiting : Reports: No symptoms Musculoskeletal: Reports: No symptoms Skin: Reports: No symptoms Neurological: Reports: No symptoms Endocrine: Reports: No symptoms Hematologic/Lymphatic: Reports: No symptoms All Other Systems: Reviewed and Negative Past Medical History - Past Medical History Previously Healthy: Yes Endocrine: Reports: None Cardiovascular: Reports: CAD, [place], Hypertension Respiratory: Reports: None, Bronchitis Hematological: Reports: None Gastrointestinal: Reports: None Genitourinary: Reports: Kidney stones Neuro/Psych: Reports: Migraine, Anxiety, Depression Musculoskeletal: Reports: None Cancer: Reports: None Last Menstrual Period: NA - Surgical History General Surgical History: Reports: Tubal ligation, Cholecystectomy - Family History Family History: Reports: Unknown - Social History Smoking Status: Current some day smoker Hx Substance Use: No Alcohol Screening: None - Immunizations Tetanus Shot up to Date: Yes Physical Exam - Physical Exam Appearance: Ill-appearing, Obese Ill-appearing: Moderate Pain Distress: Severe Eyes: REY, EOMI, Conjunctiva clear (NON ICTERIC) ENT: Ears normal, Nose normal, Oropharynx normal Neck: Supple Respiratory: Airway patent, Breath sounds clear, Breath sounds equal, Respirations nonlabored Cardiovascular: RRR, Pulses normal, No rub, No murmur GI/: Soft, No masses, Bowel sounds normal, No Organomegaly, Tender (NO INVOLUNTARY GUARDING OR REBOUND TENDERNESS) Musculoskeletal: Normal strength, ROM intact, No edema Skin: Warm, Dry, Normal color Neurological: Sensation intact, Motor intact, Reflexes intact, Cranial nerves intact, Alert, Oriented Psychiatric: Affect appropriate, Mood appropriate Critical Care Note - Critical Care Note Total Time (mins): 60 Course - Course Hematology/Chemistry: 10/17/17 10:10 10/17/17 10:10 Orders, Labs, Meds: Lab Review 10/17/17 10/17/17 10/17/17 10:10 10:10 10:10 WBC 13.10 H RBC 4.99 Hgb 14.4 Hct 42.8 MCV 85.8 MCH 28.9 MCHC 33.6 RDW Coeff of Kristopher 14.8 Plt Count 267 Immature Gran % (Auto) 0.5 Neut % (Auto) 59.4 Lymph % (Auto) 30.2 [place] % (Auto) 8.9 Eos % (Auto) 0.8 Baso % (Auto) 0.2 Immature Gran # (Auto) 0.1 Neut # (Auto) 7.8 H Lymph # (Auto) 4.0 H [place] # (Auto) 1.2 Eos # (Auto) 0.1 Baso # (Auto) 0.0 Sodium 138 Potassium 4.1 Chloride 103 Carbon Dioxide 27 Anion Gap 12.1 BUN 12 Creatinine 0.77 Estimated GFR (MDRD) 80.00 BUN/Creatinine Ratio 15.58 Glucose 133 H Calcium 9.6 Total Bilirubin 0.5 AST 17 ALT 22 Alkaline Phosphatase 90 Troponin I < 0.0100 Total Protein 7.6 Albumin 3.6 Globulin 4.0 Albumin/Globulin Ratio 0.90 Lipase 15 Urine Color Urine Clarity Urine pH Ur Specific [place] Urine Protein Urine Glucose (UA) Urine Ketones Urine Blood Urine Nitrite Urine Bilirubin Urine Urobilinogen Ur Leukocyte Esterase Urine Microscopic RBC Urine Microscopic WBC Ur Squamous Epith Cells Urine Bacteria Urine Trichomonas Urine Test Urine Opiates Screen Positive Ur Oxycodone Screen Negative Urine Methadone Screen Negative Ur Propoxyphene Screen Negative Ur Barbiturates Screen Negative U Tricyclic Antidepress Negative Ur Phencyclidine Scrn Negative Ur Amphetamine Screen Negative U Methamphetamines Scrn Negative U Benzodiazepines Scrn Positive Urine Cocaine Screen Negative U Cannabinoids Screen Negative 10/17/17 10/17/17 10:10 10:10 WBC RBC Hgb Hct MCV MCH MCHC RDW Coeff of Kristopher Plt Count Immature Gran % (Auto) Neut % (Auto) Lymph % (Auto) [place] % (Auto) Eos % (Auto) Baso % (Auto) Immature Gran # (Auto) Neut # (Auto) Lymph # (Auto) [place] # (Auto) Eos # (Auto) Baso # (Auto) Sodium Potassium Chloride Carbon Dioxide Anion Gap BUN Creatinine Estimated GFR (MDRD) BUN/Creatinine Ratio Glucose Calcium Total Bilirubin AST ALT Alkaline Phosphatase Troponin I Total Protein Albumin Globulin Albumin/Globulin Ratio Lipase Urine Color Yellow Urine Clarity Slightly Urine pH 5.5 Ur Specific [place] 1.025 Urine Protein Trace Urine Glucose (UA) Negative Urine Ketones Negative Urine Blood 1+ Urine Nitrite Negative Urine Bilirubin Negative Urine Urobilinogen 0.2 Ur Leukocyte Esterase Trace Urine Microscopic RBC 2-5 Urine Microscopic WBC 20-30 Ur Squamous Epith Cells 5-10 Urine Bacteria 1+ Urine Trichomonas Many Urine Test Negative Urine Opiates Screen Ur Oxycodone Screen Urine Methadone Screen Ur Propoxyphene Screen Ur Barbiturates Screen U Tricyclic Antidepress Ur Phencyclidine Scrn Ur Amphetamine Screen U Methamphetamines Scrn U Benzodiazepines Scrn Urine Cocaine Screen U Cannabinoids Screen Orders Category Date Time Status EKG-(ED ONLY) Stat CARDIO 10/17/17 10:11 Completed INTAKE & OUTPUT Q8HR CARE 10/17/17 12:10 Ordered NOTHING BY MOUTH DIETARY 10/17/17 Lunch Ordered IV [ED IV/MEDIPORT/POWERPORT] .ONCE EMERGENCY 10/17/17 10:11 Active CBC W/ AUTO DIFF Stat LAB 10/17/17 10:10 Completed CMP [COMPREHENSIVE METABOLIC PANEL] Stat LAB 10/17/17 10:10 Completed LIPASE Stat LAB 10/17/17 10:10 Completed TROPONIN I Stat LAB 10/17/17 10:10 Completed UA [URINALYSIS C & S IF INDICATED] Stat LAB 10/17/17 10:10 Completed URINE CULTURE Stat LAB 10/17/17 10:10 Received URINE DRUG SCREEN (RAPID FOR ED) [DRUG SCREEN, URINE, LAB 10/17/17 10:10 Completed RAPID] Stat URINE Stat LAB 10/17/17 10:10 Completed 0.9 % Sodium Chloride [Saline Flush] MEDS 10/17/17 10:12 Active 1 syr IVF PRN PRN Ceftriaxone Sodium [Rocephin] 1 gm MEDS 10/17/17 12:30 Ordered 0.9 % Sodium Chloride [Sodium Chloride] 50 ml IV DAILY Dicyclomine Inj [Bentyl] MEDS 10/17/17 11:21 Discontinued 10 mg IM ONCE STA Famotidine Inj [Pepcid] MEDS 10/17/17 10:16 Discontinued 20 mg IVP ONCE STA Hydromorphone HCl [Dilaudid 2 mg/ml Sdv] MEDS 10/17/17 11:21 Discontinued 2 mg IVP ONCE STA Hydromorphone HCl/Pf [Dilaudid 2 mg/ml Syringe] MEDS 10/17/17 11:25 Discontinued 2 mg .ROUTE .STK-MED ONE Mag-Al Plus//Lidocaine [Gi Cocktail] MEDS 10/17/17 10:16 Discontinued 30 ml PO ONCE STA Ondansetron HCl/Pf [Zofran 4 mg/2 ml] MEDS 10/17/17 10:12 Discontinued 4 mg IVP ONCE STA Promethazine HCl [Phenergan 25 mg/ml Vial] MEDS 10/17/17 10:57 Discontinued 25 mg .ROUTE .STK-MED ONE Promethazine HCl [Phenergan 25 mg/ml Vial] 25 mg MEDS 10/17/17 10:53 Discontinued 0.9 % Sodium Chloride [Sodium Chloride] 50 ml IV ONCE Sodium Chloride 0.9% [Sodium Chloride] 1,000 ml MEDS 10/17/17 10:12 Active IV BOLUS RESUSCITATION STATUS Routine OTHERS 10/17/17 12:03 Ordered CHEST, 1V AP ONLY Stat RADS 10/17/17 10:[address] ABDOMEN/PELVIS WO CONTRAST Stat RADS 10/17/17 10:40 Completed Medications Generic Name Dose Route Start Last Admin Trade Name Freq PRN Reason Stop Dose Admin Sodium Chloride 1 syr 10/17/17 10:12 Saline Flush IVF PRN PRN To flush IV Discontinued Medications Generic Name Dose Route Start Last Admin Trade Name Freq PRN Reason Stop Dose Admin Al Hydroxide/Mg Hydroxide 30 ml 10/17/17 10:16 10/17/17 10:34 Gi Cocktail PO 10/17/17 10:17 30 ml ONCE STA Administration Dicyclomine HCl 10 mg 10/17/17 11:21 10/17/17 11:34 Bentyl IM 10/17/17 11:22 10 mg ONCE STA Administration Famotidine 20 mg 10/17/17 10:16 10/17/17 10:34 Pepcid IVP 10/17/17 10:17 20 mg ONCE STA Administration Hydromorphone HCl 2 mg 10/17/17 11:21 10/17/17 11:33 Dilaudid 2 Mg/Ml Sdv IVP 10/17/17 11:22 Not Given ONCE STA Sodium Chloride 1,000 mls @ 500 mls/hr 10/17/17 10:12 10/17/17 10:35 Sodium Chloride IV 10/17/17 12:11 500 mls/hr BOLUS STA Administration Promethazine HCl 25 mg/ Sodium 51 mls @ 75 mls/hr 10/17/17 10:53 10/17/17 11: 01 Chloride IV 10/17/17 11:33 75 mls/hr ONCE STA Administration Ondansetron HCl 4 mg 10/17/17 10:12 10/17/17 10:34 Zofran 4 Mg/2 Ml IVP 10/17/17 10:13 4 mg ONCE STA Administration Vital Signs: Temp Pulse Resp BP Pulse Ox 10/17/17 09:56 97.3 F L 100 H 22 193/100 H 96 Departure - Departure Time of Disposition: 12:10 Disposition: PLACED OBSERVATION Discharge Problem: Gastroenteritis, Urogenital infection by trichomonas vaginalis Condition: Good Pt referred to PMD for follow-up: No IPMP verified?: No Allergies/Adverse Reactions: Allergies ketorolac tromethamine [From Toradol] Adverse Reaction (Verified 09/16/17 22:00) Rash Home Medications: Ambulatory Orders Ascorbic Acid [Vitamin C] 1,000 mg PO DAILY 01/08/15 Aspirin/Calcium Carbonate/Mag [Aspirin Buffered 325 mg Tab] 325 mg PO DAILY 04/23 Atorvastatin Calcium 20 mg PO DAILY 01/08/15 Carvedilol [Coreg] 6.25 mg PO BIDWM 01/08/15 Flaxseed Oil [Flax Seed Oil] 1,000 mg PO BID 01/08/15 Furosemide [Lasix Tab] 40 mg PO QDAC 01/08/15 [place]-3 Fatty Acids/Fish Oil [Fish Oil 1,000 mg Capsule] 1 each PO BID 01/08/15 Duloxetine HCl [Cymbalta] 60 mg PO DAILY 03/21/15 Hydrocodone/Acetaminophen [Hydrocodone-Acetamin 10-325 mg] 1 each PO QID PRN Spironolactone 25 mg PO BID 09/20/16 Ticagrelor [Brilinta] 60 mg PO DAILY 01/06/17 Disposition Discussed With: Patient (Discussed case with Dr Eisenberg who agrees to admit) Additional Information: 1030-CXR REVIEWED-GASTRIC AIR [employer]LE MIDEPIG-LUQ 1034 -MEDS ADMINISTERED 1048-TO CT 1055-BACK FROM CT(PATIENT BETTER- LESS DRY HEAVING BUT STILL NAUSEATED)_ 1120: CT reviewed- susp small bowel enteritis Pain had been better but now exacerbated Ordered Dilaudid plus bentyl. reviewed test results, specifically urine findings. + trichomonas(pt verbalized no sexual relations for 1 year) 1150 Much improved after iv analgesics, answered questions again concerning UA findings 12:[address] Eisenberg who agrees to admission . Aware of all lab findings and recommendation to tx UA findings -hold off on oral flagyl untl n-v resolved.
[2017-10-17] MEDS ORDERED: PHENERGAN 25 MG/ML VIAL 25 MG in SODIUM CHLORIDE 50 ML IV STA (10:53)
--- NOTE | 2017-10-17 10:56 | DI ---
EXAM: Single view of the chest. History: Chest pain and abdominal pain. Comparison: Chest radiograph 06/13/2017 Findings: Heart size is normal. No focal consolidation. No appreciable pleural fluid and no pneumo thorax. No acute osseous abnormalities. Impression: No acute cardiopulmonary process.
[2017-10-17] MEDS ORDERED: PHENERGAN 25 MG/ML VIAL ONE (10:57)
--- NOTE | 2017-10-17 11:18 | CT ---
EXAM: CT of the abdomen pelvis without contrast History: Abdominal pain and nausea. Comparison: CT abdomen pelvis 01/06/2017 Technique: Multiplanar CT images through the abdomen pelvis were obtained without the administration of IV contrast. Findings: Lung bases are free of consolidation. No acute osseous abnormalities. Severe degenerative disc disease at L5-S1. Bilateral pars defects and L5-S1. No spondylolisthesis. The liver is mildly enlarged. No discrete gallstones identified by CT. Spleen is unremarkable. No renal stones and no hydronephrosis. 1.8 cm hypoattenuating area within the superior pole of the right kidney. Adrenal glands are unremarkable. No peripancreatic inflammation. No dilated loops of aliza l. No bladder wall thickening. Adnexal structures appear appropriate for patient's age. The append ix is not seen. There are no secondary signs of appendicitis. Mild colonic diverticulosis. No free air and no ascites. No inflammatory stranding. Nondilated fluid filled loops of small bowel and mil d hyperemia seen adjacent to the proximal small bowel. Impression: 1. Indeterminate hypoattenuating area within the superior pole of the right kidney could represent a mass versus focal pyelonephritis. Recommend correlation with renal ultrasound or an IV contrast enh anced CT. 2. Mild hepatomegaly. 3. Severe degenerative disc disease at L5-S1 . 4. Probable mild small bowel enteritis. No bowel obstruction.
[2017-10-17] MEDS ORDERED: BENTYL IM STA (11:21)
[2017-10-17] MEDS ORDERED: DILAUDID 2 MG/ML SDV IVP STA (11:21)
[2017-10-17] MEDS ORDERED: DILAUDID 2 MG/ML SYRINGE ONE (11:25)
[2017-10-17] MEDS ORDERED: ROCEPHIN ONE (12:19)
[2017-10-17] MEDS ORDERED: ROCEPHIN 1 GM in SODIUM CHLORIDE 50 ML IV SCH (12:30)
--- NOTE | 2017-10-17 13:44 | PCM ---
- Chief Complaint Chief Complaint: Abdominal pain, intractable Nausea and vomiting. - History of Present Illness History of Present Illness: Patient presented to ER around 10:00 today with Upper abd pain starting this am around 6am. She worked alst night and awakened with discomfort, N/V and retching. This has happened historically, worked up and etiology previously unknown. Reviewed note from Dr. Her. She told Er no chance of , no sex in 1 year. She had a total of 4 bouts of emesis prior to ER evaluation. No reported lower GI symptoms, no flank pain, no symptoms or history of nephrolithiasis reported to ER. Initial ER vitals showed afebrile status, temp 97.3, pulse 100, RR 22, BP 193/100, Po2 96. HR dropped to 62 at 1 pm and then vitals the same at 13:43. HR 90, RR >20. SIRS criteria met. Sudden onset of abdominal pain x 4 hours prior to presentation, colicky pain, epigastric, RUQ and LUQ, severe pain, severe onset and comes in waves. Back pain, radiation of pain into the back. DDX in ER viral vs bact gastroenteritis, gastritis pancreatitis, GB disease (cholecystitsi), Bowel obstruction, UTI. EKG completed. Reviewed exam, +CVS tenderness, no other surgical findings. Decreased PO intake for liquids and solids. No diarrhea so far. History of CAD , CA, HTN. History of nephrolith listed, migraines/anxiety/depression. HIstory of BTL, hood. +Tobacco. Labs showed mild WBC elevation 13.10, Hgb stable 14.4, plt 267. Neutrophilia, which may be secondary to demargination from emesis. CMP normal except elevated glucose at 133. Troponin negative, albumin normal. Lipase normal at 15. UDS + Benzo and opiate. Urine preg negative. Many trichomnas, 1+ bacteria. She was given GI coctail, rocephin, bentyl, pepcid, dilaudid 2mg, zofran, phenergan and IV fluids in ER. CXR was negative. CT abd/pelvis w/o was completed and Showed abnl spot on right kidney ? Pyelo and requested with contrast "Indeterminate hypoattenuating area within superior pole of right kideny could represent a mass vs pyelo. Correlate with renal US or IV contrast CT. Lumbar spine degeneration L5-S1 and e/o enteritis. Current working Dx gastroenteritis, urogenital infection w/ trichomonas possible pyelonephritis, HTN urgency. Home meds reviewed: coreg 6.25 BID, aldactone 25 BID, brilinta 60 daily. Patient seen in room 115 by me 13:45. She was sedated/groggy but easily arousable. Aware of name/date/location. No C/O pain. Requested crackers and water/sprite. No history of DM. No recent travel. Works at [employer] and no known exposures. NO diarrhea. Abd pain this am came on all of a sudden. She does not drink ETOH, does not use any illegal drugs. NO change in diet. No regular use of ibuprofen/Aleve or other NSAIDS. Not sexually active in >1 year (trich + on urine). She currently feels good, BP is stable/down and as noted no pain. This may be a factor of dilaudid and I will allow this to wear off to assess patient. She can continue home meds. BP markedly elevated in ER now normotensive. White count mildly elevated, not concerning. With +trich, I would like to also check GC/Chlamydia. Consider f/u with PCP outpatient to evaluate RpR/HIV/HepC. Normal BM reported yesterday. History of BTL, history of L oophorectomy, history of cholecystectomy. LMP 3 weeks ago, normal. We talked about symptoms. She said she was told she may get to go home tonight. We reviewed the CT findings together and that is at this point the flores piece of the puzzle that we can address. If pyelo, I would like to make sure that she get on abx. We talked about her sx, Nausea/emesis may be result of pyelo and not GI related. She has no Cardiac, no sx (AT ALL), no vaginal discharge, no bleeding ,no atypical cycles, not sexually active. No abnl behaviors, nothing out of the ordinary. Last time this happened she had sx for 1-2 days and then it was gone. No anemia, she is on brilenta for cardiac disease. We will use ALEENA/SCD while she is in hospital. Counseled safer at home if symptom free. She agreed. CT ordered, she is curious about spot on kidney. - Review of Systems Constitutional: chills, weakness, sweats, fatigue, loss of appetite. No: fever Eyes: No: blurred vision, double-vision, discharge, itching, pain, redness, photophobia, other Ears: No: pain, bleeding, drainage, ringing, hearing loss, other Nose: No: bleeding, congestion, discharge, other Throat: No: pain, swelling, voice change, other Mouth: No: bleeding, pain, swelling, other Respiratory: No: cough, shortness of air, wheeze, hemoptysis, pain with breathing, other Cardiovascular: No: chest pain, left arm pain, diaphoresis, PND, orthopnea, edema, palpitations, syncope, other Gastrointestinal: abdominal pain, nausea, vomiting, other (Normal BM yesterday. ). No: diarrhea, melena, hematemesis, hematochezia, dysphagia, constipation Genitourinary: other (Other than upper abd pain, no complaints. ). No: dysuria , hematuria, frequency, incontinence, flank pain, vaginal discharge, abnormal bleeding, pelvic pain Neurological: headache, dizziness Musculoskeletal: pain (thoracic/lumbar. ) Skin: other (tattoo (Back)) Immunology: No: hives, itching, frequent infections, difficulty healing, other Hematology: No: easy bruising, easy bleeding, swollen glands, other Endocrine: No: weight changes, cold intolerance, heat intolerance, excessive thirst, excessive hunger, polyuria, other Psychiatric: depression, anxiety. No: sleeplessness, hopelessness, suicidal, hallucinations, other Habits: tobacco use. No: substance use, alcohol use - Past Medical History Past Medical History: , multiple miscarriages. HTN, morbid obesity, [place], tobacco use 1 ppd. CAD, chronic low back pain. - Past Surgical History Past Surgical History: [place], L-Oophorectomy, Csection x 1, BTL - Allergies Allergies/Adverse Reactions: Allergies Allergy/AdvReac Type Severity Reaction Status Date / Time ketorolac tromethamine AdvReac Rash Verified 09/16/17 22:00 [From Toradol] - Medications Medications: Medications Generic Name Dose Route Start Last Admin Trade Name Freq PRN Reason Stop Dose Admin Ceftriaxone Sodium 1 gm/ 50 mls @ 75 mls/hr 10/17/17 12:30 10/17/17 12:23 Sodium Chloride IV 75 mls/hr DAILY [facility] Administration Sodium Chloride 1 syr 10/17/17 10:12 Saline Flush IVF PRN PRN To flush IV Active Medications Generic Name Dose Route Start Last Admin Trade Name Freq PRN Reason Stop Dose Admin Hydrocodone Bitart/Acetaminophen tab 10/17/17 14:10 [place] 10-325 PO QID PRN Pain Atorvastatin Calcium 20 mg 10/18/17 09:00 Lipitor PO DAILY [facility] Carvedilol 6.25 mg 10/17/17 17:30 Coreg PO BIDWM [facility] Furosemide 40 mg 10/18/17 06:30 Lasix Tab PO QDAC [facility] Ceftriaxone Sodium 1 gm/ 50 mls @ 75 mls/hr 10/17/17 12:30 10/17/17 12:23 Sodium Chloride IV 75 mls/hr DAILY [facility] Administration Sodium Chloride 1,000 mls @ 100 mls/hr 10/17/17 15:00 Sodium Chloride IV .Q10H [facility] Famotidine 20 mg/ Sodium 52 mls @ 100 mls/hr 10/17/17 21:00 Chloride IV Q12HR [facility] Nicotine 1 patch 10/17/17 14:23 Nicoderm 21 Mg TD DAILY [facility] Non-Formulary Medication 1,000 mg 10/18/17 09:00 Ascorbic Acid [Vitamin C] PO DAILY [facility] Non-Formulary Medication 325 mg 10/18/17 09:00 Aspirin/Calcium Carbonate/Mag [Aspirin Buffered 325 Mg Tab] PO DAILY [facility] Non-Formulary Medication 60 mg 10/18/17 09:00 Duloxetine Hcl [Cymbalta] PO DAILY [facility] Non-Formulary Medication 1,000 mg 10/17/17 21:00 Flaxseed Oil [Flax Seed Oil] PO BID [facility] Non-Formulary Medication 1 each 10/17/17 21:00 [place]-3 Fatty Acids/Fish Oil [Fish Oil 1,000 Mg Capsule] PO BID [facility] Ondansetron HCl 4 mg 10/17/17 15:01 Zofran 4 Mg/2 Ml IVP Q4H PRN abd pain and nausea Sodium Chloride 1 syr 10/17/17 10:12 Saline Flush IVF PRN PRN To flush IV Spironolactone 25 mg 10/17/17 21:00 Aldactone PO BID [facility] Sucralfate 1 gm 10/17/17 17:00 Carafate PO ACHS [facility] Ticagrelor 60 mg 10/18/17 09:00 Brilinta PO DAILY [facility] - Family History Past Family History: mother healthy. Father obesity, CAD, CA. Son 23 yr old health. Prominent colon cancer, breast cancer, leukemia on father family history. - Social History Past Social History: Works [employer]. Lives alone. Smokes 1ppd multiple years. No ETOH, no drugs. No sex >1 year (of any kind). - Vital Signs Temperature: 97.9 F Pulse Rate: 62 Respiratory Rate: 20 Blood Pressure: 113/66 (Repeated on floor. Was 193/100 in ER initially. Normal now) O2 Sat by Pulse Oximetry: 95 - Body Composition Height: 5 ft 3 in Weight: 249 lb 1.957 oz ([place] body weight 104-144) Body Mass Index (BMI): 44.1 - Physical Examination HEENT: Vital Signs Temp Pulse Resp BP Pulse Ox 10/17/17 15:11 97.9 F 62 20 113/66 95 10/17/17 14:00 97.9 F 62 20 113/66 95 10/17/17 13:01 97.9 F 62 20 95 10/17/17 09:56 97.3 F L 100 H 22 193/100 H 96 Constitutional: Appearance-No acute distress, Consistent with stated age. Very sleepy secondary to medication given in ER combo of phenergan and dilaudid. NO C /o Pain. Orientation- Oriented x 3, alert [id number], not assessed. Build and Nutrition-Morbid obesityGeneral- Patient is pleasant and cooperative with the interview and exam easy to arouse but somnolent, fell asleep x 3 during encounter. Integumentary: General-No rashes, ulcers or lesions. Palpation- Normal skin moisture/turgor. Skin is warm to touch, appropriate. Capillary refill is normal bilateral Upper and lower extremity. Tattoo mid/lower back. Head/Neck: Head- normocephalic and atraumatic. Neck- without visible/palpable lumps or pulsations. Palpation- No bony tenderness about head/neck along frontal, occipital, temporal, parietal, mastoid, jawline, zygoma, orbit or any other location. NO temporal artery tenderness. No TMJ tenderness. Neck Supple. Thyroid-No thyromegaly, no nodules Eye: Bilaterally PERRLA, EOMI. No discharge. Upper and lower eyelids are normal. Sclera/conjunctiva normal without discharge. Cornea is normal and clear. Lens is normal. Eyeball appears normal. No ciliary flushing, no conjunctival injection. ENMT: Pinna- normal without tenderness or erythema. External auditory canal Left- normal without erythema or discharge, no excessive cerumen. External auditory canal Right-normal without erythema or discharge, no excessive cerumen. TM left- Concepcion/pearly, normal light reflex and anatomy TM Right- Concepcion/ pearly, normal light reflex and anatomy Hearing Assessment-normal to conversational speech. Nose and sinus- No sinus tenderness along frontal/ maxillary region. External appearance normal and midline. Nares- bilateral quiet airflow, no discharge. Nasal mucosa- No bleeding noted and no ulcerations observed. [place], moist. Turbinates non boggy. Lips- normal color, moist without cracks/lesions Oral Cavity/Palate- hard/soft palate intact without lesions, oral mucosa pink and moist. Tongue normal midline. Oropharynx- no pharyngeal erythema, Uvula midline. No post nasal drip. No exudate. Salivary glands- Non tender to palpation CHEST/LUNG: Inspection- symmetric chest wall no pectus deformity. Normal effort , no distress, no use of accessory muscles. Palpation- nontender sternum, ribline. No abnormal pulsations. Auscultation- Breath sounds normal throughout all lung pa. Normal tracheal sounds, Normal bronchial sounds overlying sternum, Bronchovessicular sounds normal between scapulae posteriorly, Normal vessicular breath sounds heard throughout periphery. Lungs are clear today. Adventitious sounds- No wheezes, rales, rhonchi. CARDIOVASCULAR: Carotid artery- normal, no bruits or abnormal pulsations. Jugular vein- no pulsations. Palpation/Percussion- Normal PMI, no palpable thrill Auscultation- Regular rate and rhythm. No murmur noted in sitting, supine positions. Extremities- no digital clubbing, cyanosis, edema, increased warmth. ABDOMEN: Inspection- normal and no visible pulsations. Normal contour. Auscultation- Bowel sounds hypoactive, no abdominal bruits. Palpation/Percussion - soft, tender RUQ/LUQ, Epigastric. NO alvarenga sign. She has NO CTA TENDERNESS NOW (DID IN ER), no rebound tenderness, no rigidity (guarding), no jar tenderness, no masses. Rovsing negative, No suprapubic tenderness, no LLQ/RLQ tenderness. Liver/spleen- Difficult to assess secondary to habitus but no obvious hepatosplenomegaly, Hernias- none. Rectal not examined. Peripheral Vascular: Upper extremity Left- Normal temperature with pink nailbeds and no ulcerations. Upper extremity Right- Normal temperature with pink nailbeds and no ulcerations. Lower extremity- Normal temperature with pink nailbeds and no ulcerations. DP pulses 2+ bilaterally. Pedal hair intact. Normal capillary refill. Edema- No edema. Musculoskeletal: Generalized-No generalized swelling or edema of extremities, no digital clubbing or cyanosis, neurovascularly intact all four extremities. Upper extremity- Symmetrical posture. No visible deformity. Normal sensation along medial and lateral upper extremity proximally and distally. NO tenderness overlying shoulder, lateral/medial epicondyle. Machine Stapler 5/5 and strength 5/5 bilateral UE. Elbow palpated, no tenderness overlying olecranon. Normal supination, pronation to active/passive ROM and to resisted rotation. Bicep insertion/tricep insertion appear normal without obvious pathology. Rotator cuff evaluated and intact. Normal wrist ROM bilaterally. Normal hand movement, intrinsic muscles of hands normal. No tenderness to palpation of hands/wrists/ elbows. Lower extremity- Hip: Not tender to palpation, no pain, no swelling, edema or erythema of surrounding tissue, normal strength and tone. Decreased hip ROM likely secondary to habitus. Knee: Knee ROM normal flexion/extension bilaterally. No tenderness overlying trochanters, no tenderness about patella, quad tendon, patellar tendon. No tenderness at tibial tuberosity. Ankle: normal ROM not tender to palpation along medial/lateral malleolus. Foot: Normal movement of toes, no tenderness bilateral feet/toes. Normal foot type. Spine/Ribs- No deformities, masses noted. Tattoos as noted. + tenderness mid thoracic/lumbar. She reports paraspinal tenderness, spinous process tenderness , SI joint tenderness. These are present today and baseline per her report. She has not fallen. Able to sit up from supine, no reported issues. Straight leg raise neg bilat. Hallux strength normal bilat. NOrmal reflex. As noted NO CVA TENDERNESS TO MY EXAM (+ER) Neurological: General- Moves all 4 extremities symmetrically. Symmetrical face and body posture. Cranial nerves- individually evaluated II-XII and intact. PERRLA, Normal EOMI, visual/special senses appear intact, Face is symmetrical and normal sensation/movement, normal tongue, normal strength/posture of neck musculature. Reflexes- intact with DTR 2+ patellar, Achilles, bicep, brachial, tricep. Ankle clonus normal with 2 beats. Strength- 5/5 bilateral UE and LE. Soft touch- intact bilateral UE and LE. Temperature sensation- intact bilateral UE and LE. Neuropsych: Oriented- Person, place, time. (AAOx3), Mood/affect- Groggy/ somnolent, med effectg. normal and congruent. Able to articulate well. Speech- Normal speech, normal rate, normal tone, normal use of language, volume and coherence. Thought content- normal with ability to perform basic computations and apply abstract thought/reason. Associations- intact, no SI/HI, no hallucinations, delusions, obsessions. Judgment/insight- Appropriate. Memory- Recall intact, remote and recent memory intact. Knowledge- Age appropriate fund of knowledge, concentration and attention span normal. Lymphatic: Head/Neck- normal size and non tender to palpation. Axillary- normal size and non tender to palpation. Femoral and Inguinal- normal size and non tender to palpation. - Lab/Tests/Diagnostic Imaging Lab/Tests/Diagnostic Imaging: Laboratory Last Values WBC 13.10 K/ul (4.6-10.2) H 10/17/17 10:10 RBC 4.99 10^6/ul (4.20-5.40) 10/17/17 10:10 Hgb 14.4 g/dl (12.0-16.0) 10/17/17 10:10 Hct 42.8 % (37.0-47.0) 10/17/17 10:10 MCV 85.8 fl (81.0-99.0) 10/17/17 10:10 MCH 28.9 pg (27.0-31.0) 10/17/17 10:10 MCHC 33.6 (31.8-35.4) 10/17/17 10:10 RDW Coeff of [place] 14.8 % (11.6-14.8) 10/17/17 10:10 Plt Count 267 10^3/uL (140-440) 10/17/17 10:10 Immature Gran % (Auto) 0.5 % (0.0-5.0) 10/17/17 10:10 Neut % (Auto) 59.4 10/17/17 10:10 Lymph % (Auto) 30.2 (10.0-50.0) 10/17/17 10:10 [place] % (Auto) 8.9 (0-10) 10/17/17 10:10 Eos % (Auto) 0.8 % (0.0-7.0) 10/17/17 10:10 Baso % (Auto) 0.2 % (0.0-3.0) 10/17/17 10:10 Immature Gran # (Auto) 0.1 (0.0-1.0) 10/17/17 10:10 Neut # (Auto) 7.8 K/ul (2.0-6.9) H 10/17/17 10:10 Lymph # (Auto) 4.0 K/uL (0.60-3.4) H 10/17/17 10:10 [place] # (Auto) 1.2 K/uL (0.4-2.0) 10/17/17 10:10 Eos # (Auto) 0.1 K/ul (0.0-0.7) 10/17/17 10:10 Baso # (Auto) 0.0 K/uL (0-0.2) 10/17/17 10:10 Sodium 138 mmol/L (136-145) 10/17/17 10:10 Potassium 4.1 mmol/L (3.5-5.10) 10/17/17 10:10 Chloride 103 mmol/L (98-107) 10/17/17 10:10 Carbon Dioxide 27 mmol/L (21-32) 10/17/17 10:10 Anion Gap 12.1 10/17/17 10:10 BUN 12 mg/dL (7-18) 10/17/17 10:10 Creatinine 0.77 mg/dL (0.60-1.30) 10/17/17 10:10 Estimated GFR (MDRD) 80.00 mL/min 10/17/17 10:10 BUN/Creatinine Ratio 15.58 10/17/17 10:10 Glucose 133 mg/dL (70-110) H 10/17/17 10:10 Calcium 9.6 mg/dL (8.2-10.2) 10/17/17 10:10 Total Bilirubin 0.5 mg/dL (0.00-1.20) 10/17/17 10:10 AST 17 U/L (15-37) 10/17/17 10:10 ALT 22 U/L (12-78) 10/17/17 10:10 Alkaline Phosphatase 90 U/L (42-98) 10/17/17 10:10 Troponin I < 0.0100 ng/ml (0.0000-0.4000) 10/17/17 10:10 Total Protein 7.6 g/dL (6.4-8.2) 10/17/17 10:10 Albumin 3.6 g/dL (3.4-5.0) 10/17/17 10:10 Globulin 4.0 10/17/17 10:10 Albumin/Globulin Ratio 0.90 10/17/17 10:10 Lipase 15 U/L (8-78) 10/17/17 10:10 Urine Color Yellow (YELLOW) 10/17/17 10:10 Urine Clarity Slightly (CLEAR) 10/17/17 10:10 Urine pH 5.5 (5-9) 10/17/17 10:10 Ur Specific [place] 1.025 (1.005-1.030) 10/17/17 10:10 Urine Protein Trace (NEGATIVE) 10/17/17 10:10 Urine Glucose (UA) Negative (NEGATIVE) 10/17/17 10:10 Urine Ketones Negative (NEGATIVE) 10/17/17 10:10 Urine Blood 1+ (NEGATIVE) 10/17/17 10:10 Urine Nitrite Negative (NEGATIVE) 10/17/17 10:10 Urine Bilirubin Negative (NEGATIVE) 10/17/17 10:10 Urine Urobilinogen 0.2 (0.2) 10/17/17 10:10 Ur Leukocyte Esterase Trace (NEGATIVE) 10/17/17 10:10 Urine Microscopic RBC 2-5 (0-2) 10/17/17 10:10 Urine Microscopic WBC 20-30 (0-2) 10/17/17 10:10 Ur Squamous Epith Cells 5-10 (0-5) 10/17/17 10:10 Urine Bacteria 1+ (NOT PRESENT) 10/17/17 10:10 Urine Trichomonas Many (NOT PRESENT) 10/17/17 10:10 Urine Test Negative (NEGATIVE) 10/17/17 10:10 Urine Opiates Screen Positive (NEGATIVE) 10/17/17 10:10 Ur Oxycodone Screen Negative (NEGATIVE) 10/17/17 10:10 Urine Methadone Screen Negative (NEGATIVE) 10/17/17 10:10 Ur Propoxyphene Screen Negative (NEGATIVE) 10/17/17 10:10 Ur Barbiturates Screen Negative (NEGATIVE) 10/17/17 10:10 U Tricyclic Antidepress Negative (NEGATIVE) 10/17/17 10:10 Ur Phencyclidine Scrn Negative (NEGATIVE) 10/17/17 10:10 Ur Amphetamine Screen Negative (NEGATIVE) 10/17/17 10:10 U Methamphetamines Scrn Negative (NEGATIVE) 10/17/17 10:10 U Benzodiazepines Scrn Positive (NEGATIVE) 10/17/17 10:10 Urine Cocaine Screen Negative (NEGATIVE) 10/17/17 10:10 U Cannabinoids Screen Negative (NEGATIVE) 10/17/17 10:10 CXR: negative, no acute cardiopulmonary process CT abd w/o: Indeterminate hypoattenuating area within superior pole of the right kidney could represent a mass versus focal pyelo. Recommend US vs CT w/ contrast. CT ordered. Mild hepatomegaly severe ddd l5-s1. Small bowel enteritis.no obs. Urine culture Pending - Assessment (1) Abdominal pain Status: Acute Code(s): R10.9 - UNSPECIFIED ABDOMINAL PAIN SNOMED Code(s): 47728574 Qualifiers: Abdominal location: upper abdomen, unspecified Qualified Code(s): R10.10 - Upper abdominal pain, unspecified (2) Hypertensive urgency Status: Resolved Code(s): I10 - ESSENTIAL (PRIMARY) HYPERTENSION SNOMED Code (s): 434122768 (3) Abnormal CT of the abdomen Status: Acute Code(s): R93.5 - ABN FINDINGS ON DX IMAGING OF ABD REGIONS, INC RETROPERITON SNOMED Code(s): 37522039939636082 (4) BMI 40.0-44.9, adult Status: Acute Code(s): Z68.41 - BODY MASS INDEX (BMI) 40.0-44.9, ADULT SNOMED Code(s): 597489305, 095794417 (5) Smokes 1 pack of cigarettes per day Status: Acute Code(s): F17.210 - NICOTINE DEPENDENCE, CIGARETTES, UNCOMPLICATED SNOMED Code(s): 14227773 (6) Essential (primary) hypertension Status: Acute Code(s): I10 - ESSENTIAL (PRIMARY) HYPERTENSION SNOMED Code(s) : 23407954 (7) Chronic low back pain Status: Acute Code(s): M54.5 - LOW BACK PAIN SNOMED Code(s): 481004310 Qualifiers: Back pain laterality: bilateral Sciatica presence: without sciatica Qualified Code(s): M54.5 - Low back pain; G89.29 - Other chronic pain (8) Leukocytosis Status: Acute Code(s): D72.829 - ELEVATED WHITE BLOOD CELL COUNT, UNSPECIFIED SNOMED Code(s): 308560013, 324105242 Qualifiers: Leukocytosis type: unspecified Qualified Code(s): D72.829 - Elevated white blood cell count, unspecified (9) Gastroenteritis Status: Suspected Code(s): K52.9 - NONINFECTIVE GASTROENTERITIS AND COLITIS, UNSPECIFIED SNOMED Code(s): 29074668 (10) Urogenital infection by trichomonas vaginalis Status: Acute Code(s): A59.00 - UROGENITAL TRICHOMONIASIS, UNSPECIFIED SNOMED Code(s): 02946568 (11) CAD (coronary artery disease) Status: Chronic Code(s): I25.10 - ATHSCL HEART DISEASE OF [place] CORONARY ARTERY W/O ANG PCTRS SNOMED Code(s): 59055491 Qualifiers: Coronary Disease-Associated Artery/Lesion type: [place] artery [place] vs. transplanted heart: [place] heart Associated angina: without angina Qualified Code(s): I25.10 - Atherosclerotic heart disease of [place] coronary artery without angina pectoris (12) SIRS (systemic inflammatory response syndrome) Status: Acute Code(s): R65.10 - SIRS OF NON-INFECTIOUS ORIGIN W/O ACUTE ORGAN DYSFUNCTION SNOMED Code(s): 336564150 - Plan Plan: Abdominal pain Nausea and vomiting: Has met SIRS criteria. Suspected diagnosis : Gastroenteritis. Reviewed ER note, history, exam and I agree that most likely etiology is gastroenteritis/enteritis vs gastritis, PUD and also possibly pyelonephritis vs mass. Lipase was negative, liver enzymes negative. She has no pain now, just pressure in epigastric region. I will add carafate. Pepcid to continue. BP was markedly elevated at initial check but normal now at 113/66. She was minimally involved with interview due to dilaudided but now has no pain. NOrmal BM yesterday, no diarrhea to date. Clinically she seems to be doing okay. Ceftriaxone dose x 1, fluids in ER. We have calculated her maintenance dose to be 104ml/min based on ideal body weight calculation of 104- 144lb. She is currently at 249 lb and BMI of 44, which should be addressed as out patient. As noted no diarrhea so far, no e/o bowel obstruction. Pain is controlled, BP is normal. Vitals now normal, afebrile and only minimal elevation of white count likely demargination from emesis. Other than the abnormal CT scan, presenting complaints and her sedated status she actually feels pretty good right now. I am curious to see how she feels after dilaudid wears off. Step 1 CT with contrast to evaluate the abnl CT finding. ?Mass/ pyleo right kidney. She had dose of abx, she will be NPO for procedure. I have added GC/Chlamydia as RUQ pain could also be [id number] inlight of + Trich. She reports no vaginal discharge. - Urine culture - CT abd/pelvis with contrast. - Added GC/Chlamydia - Rocephin 1 gram q 24 hours to continue - Diet to be advanced post CT - Carafate for GI symptoms - Bentyl for GI symptoms - Prevacid for GI symptoms - ZOfrn for nausea Abnormal CT: Concerning finding of hypoattenuating lesion right kidney mass vs pyelo. She is on rocephin. I have ordered CT with contrast. - CT with contrast. SIRS: Vitals abnl in ER, better after fluids and evaluation. MOnitor. Leukocytosis: Mild neutrophil elevation consistent with demargination. Monitor. She has ?finding on kidney and the elevation may be real. Repeat in am if patient stays, else f/u with PCP. - CBC in am. Tobacco Use: 1 ppd Multiple years. Tobacco Cessation discussed today. We reviewed lifestyle choices and discussed quitting. Ready to quit status discussed. The risks and hazards of continued tobacco abuse were discussed with the patient today and total tobacco cessation as recommended. It was clearly and unambiguously explained that continued tobacco usage will adversely affect overall morbidity and mortality of the patient. Patient was informed that tobacco use can lead to numerous cancers, worsening of cardiovascular and pulmonary systems and that lung damage is often permanent and irreversible. I advised the patient to inform me if any further assistance is requested, as we can offer counseling services, nicotine replacement inhaled, patch, lozenge, gum , or prescription medications to include Chantix or Wellbutrin for assistance. I will reassess the interest in tobacco cessation at the next and all subsequent visits. - 21 mg patch daily while in hospital. HTN Urgency: Present while in ER, now normal. Resume home meds. RESOLVED - Continue home meds (spironolactone/Cozaar). DVT Prophy: ALEENA/SCD. OOB and ambulating. Diet: NPO until CT completed and then advance as tolerated. Morbid Obesity: BMI 44, extreme obesity increases morbidity for patient. Needs to f/u with PCP to discuss weight loss. Chronic back pain: ON norco at home. UDS + for opiates and benzos (she is on these). F/U with PCP and pain specialist. No extra tylenol as she takes this QID and ~1200mg/day already. - Continue home meds while in hospital CAD: I will add one more troponin to allow 2 sets. EKG was okay. On Brilinta. Trop 1 negative. No chest pain but females can have atypical pain. - Troponin I. Disposition: Admit to obs for now. We may convert to inpatient. She has no pain now, she is feeling much better and talked about going home tonight if still continues to feel better. We discussed am as likely best time. Diet NPO until CT complete then we can advance as tolerated. 70 minutes spent on admission. Talked with ER, reviewed labs, imaging, EKG, home meds d/w patient. Reviewed history.
[2017-10-17] MEDS ORDERED: NORCO 10-325 PO PRN (14:10)
[2017-10-17] MEDS ORDERED: NICODERM 21 MG TD SCH (14:23)
[2017-10-17] MEDS ORDERED: NICODERM 14 MG TD SCH (14:30)
[2017-10-17] MEDS ORDERED: SODIUM CHLORIDE 1,000 ML IV SCH (15:00)
[2017-10-17] MEDS ORDERED: ZOFRAN 4 MG/2 ML IVP PRN (15:01)
[2017-10-17] MEDS ORDERED: NICODERM 21 MG TD ONE (15:40)
--- NOTE | 2017-10-17 15:40 | CT ---
EXAM: CT abdomen and pelvis with IV contrast. HISTORY: Abnormal CT exam without contrast. Kidney mass versus pyelonephritis TECHNIQUE: Multi-slice transaxial helical CT. Coronal and sagittal reformatons were performed. COMPARISON: CT exam from same day. FINDINGS: The heart is normal in size. Left coronary artery calcifications are present. Advanced disc space uri rowing with endplate sclerosis at L5-S1 is again seen. L5-S1 facet osteoarthritis is present. The nahum ng bases are clear. Focal water density lesion in the superior pole of the right kidney is seen which measures up to 1.5 cm in size. Additional sub-centimeter hypodensities are seen within the right kidney which are too s mall to actually characterize. No evidence of perinephric fluid collection or stranding is seen. Th e spleen is normal in size. No intrahepatic biliary ductal dilation is seen. The gallbladder, pancr eas, and the bilateral adrenal glands appear grossly unremarkable. The bowel is not dilated. Examination of the abdomen is limited without IV contrast. Surgical clips are present within the pelvis. The uterus and the urinary bladder appear grossly unremarkable within the confines of this exam. The appendix is not clearly identified. No pelvic free fluid is seen. Calcified plaques are present within the abdominal aorta. IMPRESSION: 1. Simple appearing cyst in the superior pole of the right kidney. Additional sub-centimeter hypode nsities in the right kidney too small to characterize. Pyelonephritis appears less likely. 2. No acute abdominal findings. 3. Prominent left coronary artery atherosclerosis. This is more prominent than typically seen in a female of this age. 4. Other incidental findings as detailed above. 5. Exam limited by motion artifacts.
[2017-10-17] MEDS ORDERED: CARAFATE ONE ×3 (16:52→23:41)
[2017-10-17] MEDS ORDERED: COREG ONE (16:53)
[2017-10-17] MEDS: CARAFATE PO SCH ×2 (16:56→21:38)
[2017-10-17] MEDS ORDERED: NORCO 10-325 ONE (17:04)
[2017-10-17] MEDS: NORCO 10-325 PO PRN (17:07)
[2017-10-17] MEDS ORDERED: COREG PO SCH (17:30)
[2017-10-17] MEDS ORDERED: FLAXSEED OIL 1000 MG PO SCH (21:00)
[2017-10-17] MEDS ORDERED: ALDACTONE PO SCH (21:00)
[2017-10-17] MEDS ORDERED: PEPCID 20 MG in SODIUM CHLORIDE 50 ML IV SCH (21:00)
[2017-10-17] MEDS ORDERED: NON-FORMULARY MEDICATION (Omega-3 Fatty Acids/Fish Oil [Fish Oil 1,000 Mg Capsule] 1 EACH) PO SCH (21:00)
[2017-10-17] MEDS ORDERED: PEPCID ONE (21:06)
[2017-10-17] MEDS ORDERED: OMEGA-3 FISH OIL ONE (21:07)
[2017-10-17] MEDS ORDERED: ALDACTONE ONE (21:07)
[2017-10-17] MEDS ORDERED: LASIX TAB ONE (23:41)
[2017-10-18] MEDS ORDERED: NORCO 10-325 ONE (01:17)
[2017-10-18] MEDS ORDERED: ZOFRAN 4 MG/2 ML ONE (01:17)
[2017-10-18] MEDS: NORCO 10-325 PO PRN (01:19)
[2017-10-18] MEDS ORDERED: PHENERGAN TAB PO STA (01:52)
[2017-10-18] MEDS ORDERED: PHENERGAN TAB ONE (01:57)
[2017-10-18] MEDS ORDERED: DILAUDID 2 MG/ML SYRINGE IVP ONE (03:06)
[2017-10-18] MEDS ORDERED: DILAUDID 2 MG/ML SDV ONE (03:11)
--- NOTE | 2017-10-18 04:26 | PCM.PROG ---
Subjective: Error Please see D/C summary same date/time. Plan: ERROR PLEASE SEE D/C [place]
[2017-10-18] MEDS: CARAFATE PO SCH (05:49)
[2017-10-18 06:03] VITALS: BP 129/75; TEMP 97.6
--- NOTE | 2017-10-18 06:10 | PCM.DC ---
Final Diagnosis: 1. Abdominal Pain unspecified etiology: Uncontrolled. Working diagnosis Enteritis. - CT abdomen with contrast showed simple cyst, still ?Enteritis. - Lipase/liver enzymes negative - white count 13K suspected demargination - Ceftriaxone given x 1 in ER for ?pyelo on initial CT that was found to be a simple cyst and not pyelo - Cardiac enzymes/EKG negative x 2. 2. Trichomonas Vaginalis: Unkown duration, no sex in 1 year. No urinary symptoms, no vaginal symptoms, normal menstrual cycle 3 wk prior - Plan to treat with flagyl 2 gram PO outpatient. - Suspected incidental finding on urinalysis. - Urine Culture pending. 3. Morbid Obesity BMI 44.1 4. 1 Pack per day tobacco: Cessation d/w patient. - Nicotine replacement in hospital. 5. Abnormal CT: CT w/o contrast used in ER and atypical hypoattenuation lesion right superior pole. ?pyelo, ?mass. recommended US vs CT w/ contrast. + Enteritis suspected from ER, working diagnosis. CT with contrast ordered and negative for cause for abdominal pain. - CT with contrast negative. 6. Hypertension w/ urgency in ER: Resolved by the time I saw her. - Spikes with mood. Home meds coreg and aldactone continued in hospital. (K + stable)> (1) Abdominal pain Status: Acute Code(s): R10.9 - UNSPECIFIED ABDOMINAL PAIN SNOMED Code(s): 17792910 Qualifiers: Abdominal location: upper abdomen, unspecified Qualified Code(s): R10.10 - Upper abdominal pain, unspecified (2) Hypertensive urgency Status: Resolved Code(s): I10 - ESSENTIAL (PRIMARY) HYPERTENSION SNOMED Code (s): 557859617 (3) Abnormal CT of the abdomen Status: Acute Code(s): R93.5 - ABN FINDINGS ON DX IMAGING OF ABD REGIONS, INC RETROPERITON SNOMED Code(s): 85583398292415608 (4) BMI 40.0-44.9, adult Status: Acute Code(s): Z68.41 - BODY MASS INDEX (BMI) 40.0-44.9, ADULT SNOMED Code(s): 954502542, 394311720 (5) Smokes 1 pack of cigarettes per day Status: Acute Code(s): F17.210 - NICOTINE DEPENDENCE, CIGARETTES, UNCOMPLICATED SNOMED Code(s): 71720870 (6) Essential (primary) hypertension Status: Acute Code(s): I10 - ESSENTIAL (PRIMARY) HYPERTENSION SNOMED Code(s) : 94060577 (7) Chronic low back pain Status: Acute Code(s): M54.5 - LOW BACK PAIN SNOMED Code(s): 598529090 Qualifiers: Back pain laterality: bilateral Sciatica presence: without sciatica Qualified Code(s): M54.5 - Low back pain; G89.29 - Other chronic pain (8) Leukocytosis Status: Acute Code(s): D72.829 - ELEVATED WHITE BLOOD CELL COUNT, UNSPECIFIED SNOMED Code(s): 593994389, 448398521 Qualifiers: Leukocytosis type: unspecified Qualified Code(s): D72.829 - Elevated white blood cell count, unspecified (9) Gastroenteritis Status: Suspected Code(s): K52.9 - NONINFECTIVE GASTROENTERITIS AND COLITIS, UNSPECIFIED SNOMED Code(s): 34405943 (10) Urogenital infection by trichomonas vaginalis Status: Acute Code(s): A59.00 - UROGENITAL TRICHOMONIASIS, UNSPECIFIED SNOMED Code(s): 79069321 (11) CAD (coronary artery disease) Status: Chronic Code(s): I25.10 - ATHSCL HEART DISEASE OF [place] CORONARY ARTERY W/O ANG PCTRS SNOMED Code(s): 90586718 Qualifiers: Coronary Disease-Associated Artery/Lesion type: [place] artery [place] vs. transplanted heart: [place] heart Associated angina: without angina Qualified Code(s): I25.10 - Atherosclerotic heart disease of [place] coronary artery without angina pectoris (12) SIRS (systemic inflammatory response syndrome) Status: Acute Code(s): R65.10 - SIRS OF NON-INFECTIOUS ORIGIN W/O ACUTE ORGAN DYSFUNCTION SNOMED Code(s): 751066858 (13) Chronic prescription opiate use Status: Acute Code(s): Z79.891 - GIN FEEDER (CURRENT) USE OF OPIATE ANALGESIC SNOMED Code(s): 709448207 Reason for Hospitalization: Observation for abdominal pain and uncontrolled N/V. Controlled in ER and admitted to obs. Did great up until about 1 am when all sx returned. Repeated same tx in ER as this worked and this time it did not work and she was more agitated. Bp did increase again but not back to the elevated levels that we saw in Er. Prognosis at Discharge: Stable on room air, Afebrile. Pain down from 10/10 to 5/10 with dialaudid but still cramping and Epigastric/LUQ pain. No emesis in hospital since leaving Er and no Diarrhea reported at all. Normal BM day before admit, which was normal for her. Condition at Discharge: Transfer to facility with GI to evaluate for cause of GI pain. Most recent vitals temp 97.6, pulse 66, rr 14, BP 129/75 O2 91 on room air. Afebrile entire stay. Medications at Discharge: Ambulatory Orders Medication Instructions Recorded Ascorbic Acid [Vitamin C] 1,000 mg PO DAILY 01/08/15 Aspirin/Calcium Carbonate/Mag 325 mg PO DAILY 01/08/15 [Aspirin Buffered 325 mg Tab] Atorvastatin Calcium 20 mg PO DAILY 01/08/15 Carvedilol [Coreg] 6.25 mg PO BIDWM 01/08/15 Flaxseed Oil [Flax Seed Oil] 1,000 mg PO BID 01/08/15 Furosemide [Lasix Tab] 40 mg PO QDAC 01/08/15 [place]-3 Fatty Acids/Fish Oil [Fish 1 each PO BID 01/08/15 Oil 1,000 mg Capsule] Duloxetine HCl [Cymbalta] 60 mg PO DAILY 03/21/15 Hydrocodone/Acetaminophen 1 each PO QID PRN 09/20/16 [Hydrocodone-Acetamin 10-325 mg] Spironolactone 25 mg PO BID 09/20/16 Ticagrelor [Brilinta] 60 mg PO DAILY 01/06/17 Ceftriaxone Sodium [Rocephin] 1 gm IV DAILY vial 10/18/17 Dicyclomine Inj [Bentyl] 10 mg IM ONCE ampul 10/18/17 Famotidine Inj [Pepcid] 20 mg IVP ONCE vial 10/18/17 Nicotine 21 mg [Nicoderm 21 mg] 1 patch TD DAILY patch.td24 10/18/17 Promethazine HCl [Phenergan 25 25 mg IV ONCE ml 10/18/17 mg/ml Vial] Promethazine HCl [Phenergan Tab] 25 mg PO ONCE tablet 10/18/17 Sucralfate [Carafate] 1 gm PO ACHS tablet 10/18/17 Lab/Diagnostics: Laboratory Last Values WBC 13.10 K/ul (4.6-10.2) H 10/17/17 10:10 RBC 4.99 10^6/ul (4.20-5.40) 10/17/17 10:10 Hgb 14.4 g/dl (12.0-16.0) 10/17/17 10:10 Hct 42.8 % (37.0-47.0) 10/17/17 10:10 MCV 85.8 fl (81.0-99.0) 10/17/17 10:10 MCH 28.9 pg (27.0-31.0) 10/17/17 10:10 MCHC 33.6 (31.8-35.4) 10/17/17 10:10 RDW Coeff of [place] 14.8 % (11.6-14.8) 10/17/17 10:10 Plt Count 267 10^3/uL (140-440) 10/17/17 10:10 Immature Gran % (Auto) 0.5 % (0.0-5.0) 10/17/17 10:10 Neut % (Auto) 59.4 10/17/17 10:10 Lymph % (Auto) 30.2 (10.0-50.0) 10/17/17 10:10 [place] % (Auto) 8.9 (0-10) 10/17/17 10:10 Eos % (Auto) 0.8 % (0.0-7.0) 10/17/17 10:10 Baso % (Auto) 0.2 % (0.0-3.0) 10/17/17 10:10 Immature Gran # (Auto) 0.1 (0.0-1.0) 10/17/17 10:10 Neut # (Auto) 7.8 K/ul (2.0-6.9) H 10/17/17 10:10 Lymph # (Auto) 4.0 K/uL (0.60-3.4) H 10/17/17 10:10 [place] # (Auto) 1.2 K/uL (0.4-2.0) 10/17/17 10:10 Eos # (Auto) 0.1 K/ul (0.0-0.7) 10/17/17 10:10 Baso # (Auto) 0.0 K/uL (0-0.2) 10/17/17 10:10 Sodium 138 mmol/L (136-145) 10/17/17 10:10 Potassium 4.1 mmol/L (3.5-5.10) 10/17/17 10:10 Chloride 103 mmol/L (98-107) 10/17/17 10:10 Carbon Dioxide 27 mmol/L (21-32) 10/17/17 10:10 Anion Gap 12.1 10/17/17 10:10 BUN 12 mg/dL (7-18) 10/17/17 10:10 Creatinine 0.77 mg/dL (0.60-1.30) 10/17/17 10:10 Estimated GFR (MDRD) 80.00 mL/min 10/17/17 10:10 BUN/Creatinine Ratio 15.58 10/17/17 10:10 Glucose 133 mg/dL (70-110) H 10/17/17 10:10 Calcium 9.6 mg/dL (8.2-10.2) 10/17/17 10:10 Total Bilirubin 0.5 mg/dL (0.00-1.20) 10/17/17 10:10 AST 17 U/L (15-37) 10/17/17 10:10 ALT 22 U/L (12-78) 10/17/17 10:10 Alkaline Phosphatase 90 U/L (42-98) 10/17/17 10:10 Troponin I < 0.0100 ng/ml (0.0000-0.4000) 10/17/17 15:30 Total Protein 7.6 g/dL (6.4-8.2) 10/17/17 10:10 Albumin 3.6 g/dL (3.4-5.0) 10/17/17 10:10 Globulin 4.0 10/17/17 10:10 Albumin/Globulin Ratio 0.90 10/17/17 10:10 Lipase 15 U/L (8-78) 10/17/17 10:10 Urine Color Yellow (YELLOW) 10/17/17 10:10 Urine Clarity Slightly (CLEAR) 10/17/17 10:10 Urine pH 5.5 (5-9) 10/17/17 10:10 Ur Specific [place] 1.025 (1.005-1.030) 10/17/17 10:10 Urine Protein Trace (NEGATIVE) 10/17/17 10:10 Urine Glucose (UA) Negative (NEGATIVE) 10/17/17 10:10 Urine Ketones Negative (NEGATIVE) 10/17/17 10:10 Urine Blood 1+ (NEGATIVE) 10/17/17 10:10 Urine Nitrite Negative (NEGATIVE) 10/17/17 10:10 Urine Bilirubin Negative (NEGATIVE) 10/17/17 10:10 Urine Urobilinogen 0.2 (0.2) 10/17/17 10:10 Ur Leukocyte Esterase Trace (NEGATIVE) 10/17/17 10:10 Urine Microscopic RBC 2-5 (0-2) 10/17/17 10:10 Urine Microscopic WBC 20-30 (0-2) 10/17/17 10:10 Ur Squamous Epith Cells 5-10 (0-5) 10/17/17 10:10 Urine Bacteria 1+ (NOT PRESENT) 10/17/17 10:10 Urine Trichomonas Many (NOT PRESENT) 10/17/17 10:10 Urine Test Negative (NEGATIVE) 10/17/17 10:10 Urine Opiates Screen Positive (NEGATIVE) 10/17/17 10:10 Ur Oxycodone Screen Negative (NEGATIVE) 10/17/17 10:10 Urine Methadone Screen Negative (NEGATIVE) 10/17/17 10:10 Ur Propoxyphene Screen Negative (NEGATIVE) 10/17/17 10:10 Ur Barbiturates Screen Negative (NEGATIVE) 10/17/17 10:10 U Tricyclic Antidepress Negative (NEGATIVE) 10/17/17 10:10 Ur Phencyclidine Scrn Negative (NEGATIVE) 10/17/17 10:10 Ur Amphetamine Screen Negative (NEGATIVE) 10/17/17 10:10 U Methamphetamines Scrn Negative (NEGATIVE) 10/17/17 10:10 U Benzodiazepines Scrn Positive (NEGATIVE) 10/17/17 10:10 Urine Cocaine Screen Negative (NEGATIVE) 10/17/17 10:10 U Cannabinoids Screen Negative (NEGATIVE) 10/17/17 10:10 CPK/Troponin I Trends 10/17/17 10/17/17 Range/Units 10:10 15:30 Troponin I < 0.0100 < 0.0100 (0.0000-0.4000) ng/ml EKG no acute changes. CXR No acute process CT Abdomen/pelvis w/o: Indeterminate hypoattenuating area within superior pole of the right kidney could represent a mass versus focal pyelo. Recommend US vs CT w/contrast. CT ordered. Mild hepatomegaly severe ddd l5-s1. Small bowel enteritis.no obs. CT abdomen/pelvis w/: Simple appearing cyst in superior pole of the right kidney. Additional sub-centimeter hypodensities in the right kidney too small to characterize. Pyelo less likely. No acute abdominal findgins. Prominent left coronary artery atherosclerosis. More prominent than typically seen in a female of this age. Other incidental findigns L5-s1 advanced disc space narrowing L5-S1. Lung bases clear. Surgical clips in pelvis. Noted appendix not clearly visualized. (PATIENT THINKS SHE MAY HAVE HAD THIS SURGICALLY REMOVED). Education Provided to Patient and Family: 1. Uncontrolled unidentified abdominal pain: Transfer to higher level of care to have specialist evaluation for abdominal pain. Similar event 12/2016, unexplained. She asked about GB. no obvious path on CT. No US to date. Discussed pain is out of proportion and US could have been outpatient w/u. 2. Trichomonas: No sex in 1year. discussed STD. Discussed that I would encourage her to meet with PCP and to have full spectrum of STD panel. We did a urine for gonorrhea/chlamydia. No exam done as no GI, no symptoms. No discharge, normal menstrual cycle 3 weeks ago. trichomonas was found incidentally. Recommended treatment as outpatient with 2gram oral x 1. We are checking GC/Chlamydia to make sure that these are not present. Afebrile, asymptomatic. 3. Smoking cessation: Tobacco Cessation discussed/ We reviewed lifestyle choices and discussed quitting. Ready to quit status discussed. The risks and hazards of continued tobacco abuse were discussed with the patient today and total tobacco cessation as recommended. It was clearly and unambiguously explained that continued tobacco usage will adversely affect overall morbidity and mortality of the patient. Patient was informed that tobacco use can lead to numerous cancers, worsening of cardiovascular and pulmonary systems and that lung damage is often permanent and irreversible. I advised the patient to inform me if any further assistance is requested, as we can offer counseling services, nicotine replacement inhaled, patch, lozenge, gum, or prescription medications to include Chantix or Wellbutrin for assistance. I will reassess the interest in tobacco cessation at the next and all subsequent visits. Nicotine patches used while in hospital. 4. HTN: Chronic. take home BP meds. Weight loss encouraged. F/U with PCp to discuss further. 5. Morbid Obesity: Weight loss encouraged, f/u with PCP. 6. CAD: So far EKG negative, troponin negative x 2, no c/o chest pain. No SOA, no ELENA, no PND, no orthopnea. Exam w/o cardiac cause for symptoms. Follow-ups: Transfer to [facility]: Dr. Thacker. Disposition: DISCH TO [facility] Course: 47 yo female admitted to obs for Epigastric/LUQ abdominal pain and intractable nausea/vomiting/retching 10/17/17. Initially there was concern regarding an atypical lesion on the right pole of kidney and a repeat CT was ordered with contrast. Simple cyst found, no other significant findings. Working diagnosis was enteritis with lipase normal, Liver enzymes normal, creatinine normal. She slept most of the day yesterday, as she was given dilaudid and phenergan in the ER. When I saw her for admit to obs, she was feeling much better, appetite back and pain was controlled with some pressure in epigastric/LUQ region. We repeated troponin negative. She had Trich on urine, offered vaginal treatment vs oral and she chose oral. So with Nausea/vomiting we waited on giving flagyl. She asked me for crackers yesterday am, I told her she was NPO for CT but once complete can start with clear liquid and advance as tolerated. Nausea and retching controlled. GI coctail in ER did not help her, added prevacid back , added carafate to her regimen. Home meds continued. She did fine through the evening, through the night until about 1 am this morning. I was called by nursing at 150 am, 246, am 3:01 am, 3:22 am. Nausea worsening, pain worsening. Other than a cracker and some applesauce, ice chips and a few sips of water she has been stable, without pain and essentially slept. The patient has had escalating anger, escalating pain, BP has increased within this same time frame. No further doses of dilaudid were ordered/given while in observation, we continued her home meds (NORCO QID outpatient), used anti ulcer medications, anti-spasmodics and she slept essentially controlled. Now, she wanted repeat of what was done in the ER as pain was not controlled with her home doses of [place]. Nurse noted that she was not pleased with this care and he told me that she wanted what was given in ER. We provided phenergan again, we had her NPO again. This was not adequate. I saw patient x2 this am due to calling out to nursing. Around 3:30 this am I saw patient with Nurse Schuler and spent >30 minutes in the room. Patient was not happy with care, stated that nobody helped her. She had to push buttons on her machine as nobody came soon enough. She did this multiple times as it beeped and nobody would come and turn it off. She would get someone on the loaiza but nobody ever came. I told her that they had called me 4 x and each time alerted me to her concern and we addressed it. She said that she was not happy with her nurse as she felt he insulted her. I discussed that this was not the case that he had asked each time what else could be done and called me. She was not happy with any answer I gave or anything I tried to suggest. By the time that I had seen her she was groggy from the repeat dose of dilaudid, still complaining of abdominal pain, cramping and bloating now 5/10 down from 10/10. I discussed that at this point we do not have a reason for the pain that she is experiencing. CT w/o contrast and w / contrast now have showed the cyst on the kidney and no other obvious cause for the pain. We discussed again that liver looked okay on imaging and enzymes , pancrease enzymes were not elevated, no evidence of intra-abdominal problem, physically her abdomen was not surgical and she had no obvious source for this pain. BM regular, she had one prior to admit. 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 We discussed to consider transfer to a facility with a GI team to assess her as the pain has worsened again. Discussed our plan up until the pain returned/worsened was consider discharge home in the am. She had the same scenario back in December but did not relay what helped. BP was elevated as she was rocking and crying before I got in room to see her. By the time i had seen her dilaudid was given and pain was better. BP lowered again as she calmed down. After a prolonged conversation that we were not trying to cover up her pain with pain meds, that we were trying to help with the cause of the pain and to help her, she was happy with idea of transfer and I left room. She requested [employer]. Around 4:30 I was paged back to the room with nurse Ganga, as she was again not happy with the transfer, with the care that she was given and asked why I could not simply discharge her home. I discussed I could not discharge her if her pain was not controlled and in the current status of her pain/sedation. "Why did you ever admit me if you could not help me." I discussed that we were helping her, fluids, normal home meds, carafate, anti-acid meds, checked labs, imaging and trying to keep her comfortable. I discussed plan was d/c home if improved/stable as she was observation and at this point her situation worsened again. We repeated what worked, discussed transfer if pain is not adequately controlled and current w/u has not shown cause for her symptoms. I told her that we do not have any more tests to run here that would explain her pain in LUQ and LLQ. She has not had BM here. She has not had any c/o urinary symptoms. Only complaint is ABD pain. I told her that this does not seem surgical and that I do not have any surgeons or Gi specialists here. She was not happy with this answer and told me that our hospital is going backwards and downhill as we did not have surgeons and specialists. I discussed nature of critical access hospital and that is not the purpose of the hospitals. She told me that I admited her and told her we could help her but cannot, so why did we admit her. I again stated all of the above, but this did not help. We talked about her care, that her pain is not controlled with norco, was fine up until 1 am and then this was not covering it now. She was angry about the idea of transfer. She wanted to know how she would get her car back and that she drove by [employer] to come here and why we even admitted her in the first place if we were not going to help her. I was contacted by [facility] for transfer at 4:51 am, relayed the history of the patient with publication manager hospitalist. Discussed concerns for seeking behavior, relayed information about GI pain that was not controlled, relayed lab findings, CT w and w/o findings, urine trich findings and that patient pain was not adequately controlled and that she would benefit from GI evaluation. It was felt that the transfer would not be possible based on the presenting information as they would have no further options than we have here with pain meds, fluids and NPO status. I agreed with the assessment and discussed that I did not have any speciality to take a look at her. Her abdomen does not appear to be surgical, CT does not support a cause for her pain and the Dilaudid 2mg did not control the pain like it did before, fluids still running 100/hour. BP spiked when mood elevated. I had suggested transfer to patient this am as her pain was not controlled with pain meds, still 5/10 despite meds. The transfer was not felt to be acceptable and I was asked to talk with GI team. I was called back at 5:[address] Apodaca has agreed to see her and that hospitalist will admit and consult GI. 5:20 am nursing paged again by patient that her IV machine was beeping and stated that she had to call as I had told her to not mess with the machine. Hospital course: Admitted from ER by Dr. Her pain in upper abdomen, Nausea/retching and emesis ~4x not controlled. BP in ER 193/100. She was given GI coctail, no benefit, was given phenergan/zofran no benefit, IV boluses no benefit, cramping/ pain 10/10 and Epigastric/LUQ. CT completed and ? hypodense region in right pole of kidney, ?pyelonephritis. Dilaudid given in ER, Rocephin given in ER and patient was admitted to obs by me to evaluate further. White count minimally elevated, troponin negative, EKG negative. She was asleep when I saw her and reviewed her hospital ER record [place] [id number] with neutrophilia consistent with demargination from emesis/retching. Renal function normal/stable, not concerning. Liver enzymes, pancreas enzyme normal. Urine some bacteria, blood, LE, negative Nit, +TRICHOMONAS. No sex in 1 year per her report. We discussed intravaginal flagyl as an option but pharmacy does not have that. Oral flagyl was held at this time as we were going to provide 2gram once treatment to her when GI symptoms were improved. We also discussed outpatient treatment with vaginal therapy but oral>>vaginal in most cases and she would not repeat test of cure. She was groggy when I saw her, no pain noted, pressure in LUQ. Repeat troponin was negative. The patient felt okay and plan was to continue IV fluids, check a repeat CT but this time with contrast, make her NPO until procedure, evaluate the CT w/o contrast superior pole renal abnormality and then likely d/c home if stable. Home pain meds continued, home BP meds continued. By the time I saw her BP was completely normal and markedly improved from 193 SBP seen in ER when she was worked up. CT with contrast returned Sylvia called me and discussed findings of cyst on kidney , no other cause for abdominal pain. KNown chronic lumbar pain and on pain meds for this. Patient was still sleeping comfortably, vitals stable, fluids running. She did great up until mild WEST later last night, tylenol was given as she noted it was the thing that helped her the most. 2100 c/o WEST and that she would get her norco as it had tylenol in it. [place] 17:17 and 01:19. She has had carafate 17:00, 21:00. Dilaudid 03:13. No other dilaudid since 11 am yesterday. Should have onset within about 10 minutes, peak about 20 minutes in and should last 4 hours. It did not help until ~1.5 hours later and only took away the sharp edge. Pain still >5/10 despite 2mg dilaudid. pepcid given 22:10 , phenergan again 02:03. Talked with patient multiple times this am as listed above and spent >2 hours face to face with her today. I agreed with the transfer accepting team that this is concerning for pain seeking behavior and that there was not likely anything they could do either but with pain in the abdomen that is not controlled, different than the ER as it was controlled that time, I feel specialist consult is warranted. Nursing went in to see her this at 556 am Refused her lasix this am as she just wants to sleep. She did take carafate now at 558. Total time spent in transfer was ~2.5 hours w/ repeat visits to room. No visit made without nurse Ganga present during entirety of conversation/exam. Day of Discharge physical examination: Constitutional: In Room: Nurse Schuler for entirety of history/examination. Appearance: Angry, irritated, clutching at abdomen. Appears groggy. Similar to when I saw her yesterday for obs admit, s/sx of phenergan and dilaudid. However now C/o Pain 5-6/10 epigastric to LUQ. Orientation- Oriented x 3, alert Build and Nutrition-Morbid obesity General- Patient is irritated, expressed discontent with myself, nursing and hospital. Integumentary: General-No rashes, ulcers or lesions. Palpation- Normal skin moisture/turgor. Skin is warm to touch, appropriate. Capillary refill is normal bilateral Upper and lower extremity. Tattoo mid/lower back. ENMT: Nasal mucosa- No bleeding noted and no ulcerations observed. [place], moist. Turbinates non boggy. Lips- normal color, moist without cracks/lesions Oral Cavity/Palate- hard/soft palate intact without lesions, oral mucosa pink and moist. Tongue normal midline. Oropharynx- no pharyngeal erythema, Uvula midline. No post nasal drip. No exudate. Salivary glands- Non tender to palpation CHEST/LUNG: Inspection- symmetric chest wall no pectus deformity. Normal effort , no distress, no use of accessory muscles. Palpation- nontender sternum, ribline. No abnormal pulsations. Auscultation- Breath sounds normal throughout all lung pa. Normal tracheal sounds, Normal bronchial sounds overlying sternum, Bronchovessicular sounds normal between scapulae posteriorly, Normal vessicular breath sounds heard throughout periphery. Lungs are clear today. Adventitious sounds- No wheezes, rales, rhonchi. CARDIOVASCULAR: Palpation/Percussion- Normal PMI, no palpable thrill Auscultation- Regular rate and rhythm. No murmur noted in sitting, supine positions. Extremities- no digital clubbing, cyanosis, edema, increased warmth. ABDOMEN: Inspection- Visibly remains normal without visible pulsations. Normal contour. Auscultation- Bowel sounds remain mildly hypoactive Palpation/ Percussion- soft, tender LUQ, Epigastric. NO alvarenga sign. She has still has NO CTA TENDERNESS. She did have this in ER. no rebound tenderness, no rigidity ( guarding), no jar tenderness, no masses. No fluid wave. Rovsing negative, No suprapubic tenderness, no LLQ/RLQ tenderness. Liver/spleen- Difficult to assess secondary to habitus but no obvious hepatosplenomegaly, Hernias- none. Rectal not examined. Bond Analyst: no complaints, not examined. Peripheral Vascular: Upper extremity Left- Normal temperature with pink nailbeds and no ulcerations. Upper extremity Right- Normal temperature with pink nailbeds and no ulcerations. Lower extremity- Normal temperature with pink nailbeds and no ulcerations. DP pulses 2+ bilaterally. Pedal hair intact. Normal capillary refill. Edema- No edema. Musculoskeletal: Generalized-No generalized swelling or edema of extremities, no digital clubbing or cyanosis, neurovascularly intact all four extremities. Upper extremity- Symmetrical posture. No visible deformity. Normal sensation along medial and lateral upper extremity proximally and distally. NO tenderness overlying shoulder, lateral/medial epicondyle. Automatic Head Sawyer 5/5 and strength 5/5 bilateral UE. Elbow palpated, no tenderness overlying olecranon. Normal supination, pronation to active/passive ROM and to resisted rotation. Bicep insertion/tricep insertion appear normal without obvious pathology. Rotator cuff evaluated and intact. Normal wrist ROM bilaterally. Normal hand movement, intrinsic muscles of hands normal. No tenderness to palpation of hands/wrists/ elbows. Lower extremity- Hip: Not tender to palpation, no pain, no swelling, edema or erythema of surrounding tissue, normal strength and tone. Decreased hip ROM likely secondary to habitus. Knee: Knee ROM normal flexion/extension bilaterally. No tenderness overlying trochanters, no tenderness about patella, quad tendon, patellar tendon. No tenderness at tibial tuberosity. Ankle: normal ROM not tender to palpation along medial/lateral malleolus. Foot: Normal movement of toes, no tenderness bilateral feet/toes. Normal foot type. Spine/Ribs- No deformities, masses noted. Tattoos as noted. + tenderness mid thoracic/lumbar. She reports paraspinal tenderness, spinous process tenderness , SI joint tenderness. These are present today and baseline per her report. She has not fallen. Able to sit up from supine, no reported issues. Straight leg raise neg bilat. Hallux strength normal bilat. NOrmal reflex. Unchanged from my initial evaluation. Neurological: General- Moves all 4 extremities symmetrically. Symmetrical face and body posture. Cranial nerves- individually evaluated II-XII and intact. PERRLA, Normal EOMI, visual/special senses appear intact, Face is symmetrical and normal sensation/movement, normal tongue, normal strength/posture of neck musculature. Reflexes- intact with DTR 2+ patellar, Achilles, bicep, brachial, tricep. Ankle clonus normal with 2 beats. Strength- 5/5 bilateral UE and LE. Soft touch- intact bilateral UE and LE. Temperature sensation- intact bilateral UE and LE. Neuropsych: Oriented- Person, place, time. (AAOx3), Mood/affect- Groggy/ somnolent, agitated/angry. Able to articulate well but circular logic. Continually returns to the negatives and things she did not like. Splitting, nobody can help her. Speech-Normal speech, normal rate, normal tone, normal use of language, volume and coherence. Thought content- Circular returning to all the things that have not gone her way Associations- no SI/HI, no hallucinations, delusions, obsessions. Judgment/insight- Questioanble Memory- Recall intact, remote and recent memory intact. Lymphatic: Head/Neck- normal size and non tender to palpation. Axillary- normal size and non tender to palpation. Femoral and Inguinal- normal size and non tender to palpation. Plan: 1. Transfer to [facility] to see patient.
[2017-10-18] MEDS ORDERED: LASIX TAB PO SCH (06:30)
[2017-10-18] MEDS ORDERED: LIPITOR PO SCH (09:00)
[2017-10-18] MEDS ORDERED: BRILINTA PO SCH (09:00)
[2017-10-18] MEDS ORDERED: NON-FORMULARY MEDICATION (Ascorbic Acid [Vitamin C] 1,000 MG) PO SCH (09:00)
[2017-10-18] MEDS ORDERED: NON-FORMULARY MEDICATION (Duloxetine Hcl [Cymbalta] 60 MG) PO SCH (09:00)
== END 2017-10-18 06:35 | disposition hospice, inpatient (51) ==
LOC: ED 09:55 → MEDSURG B 12:05
PROVIDERS: ADMIT Family Medicine; ATTEND Family Medicine
DX: R10.10 Upper abdominal pain, unspecified (principal); R11.2 Nausea with vomiting, unspecified; R65.10 Systemic inflammatory response syndrome (SIRS) of non-infectious origin without acute organ dysfunction; R93.5 Abnormal findings on diagnostic imaging of other abdominal regions, including retroperitoneum; K52.9 Noninfective gastroenteritis and colitis, unspecified; F17.210 Nicotine dependence, cigarettes, uncomplicated; M54.5 Low back pain; G89.29 Other chronic pain; D72.829 Elevated white blood cell count, unspecified; A59.00 Urogenital trichomoniasis, unspecified; I25.10 Atherosclerotic heart disease of native coronary artery without angina pectoris; I10 Essential (primary) hypertension; Z68.41 Body mass index [BMI] 40.0-44.9, adult; Z79.891 Long term (current) use of opiate analgesic
CPT/HCPCS: 36415; 80053; 80306; 81001; 81025; 83690; 84484; 85025; 87086; 87800; 93005; 93010; 96361; 96366; 96372; 96374; 96375; 99284